=== PATIENT | female | born 1935 | race Caucasian/White ===

== ENCOUNTER 2017-12-25 22:23 | Emergency (ER) | payer MEDICAID, MEDICARE ==
[2017-12-25] MEDS ORDERED: Sodium Chloride 0.9% 10 ML Syringe FLUSH PRN (22:45)
[2017-12-25] MEDS ORDERED: Furosemide 40 MG/4 ML VIAL IVPUSH ONE (22:45)
[2017-12-26] MEDS ORDERED: Lisinopril 5 MG Tab PO ONE (00:11)
[2017-12-26 01:40] VITALS: BP 200/90
--- NOTE | 2017-12-27 15:23 | ER ---
DATE SEEN: 12/25/2017 HISTORY OF PRESENT ILLNESS: This 82-year-old woman who has two weeks on and off of elevated blood pressure and notes more recently her blood pressure medicine have been stopped. Thought to have elevated pressure today, 140/94, with a heart rate of 108. She had previous colon resection for colorectal cancer 2 years ago. Previous sacral fracture, fistula, osteomyelitis hip. (I diagnosed that previously and she was very grateful for that.) Type 2 diabetes, congestive heart failure, depression, atrial fibrillation, congestive heart failure, and GERD. Today, she came in because she had right naris epistaxis. Urine output has been slightly decreased. Several weeks ago, her blood pressure medicine was discontinued, amlodipine was discontinued (probably secondary to decreased EF). She denies shortness of breath, but has had persistent swelling in her ankles after the blood pressure medicine had been changed and her feet are swollen. They are tight, but not painful. She denies pain in her legs, proximal to the lower ankles. She denies shortness of breath or cough, chest pain or irregular heartbeat, or abdominal discomfort. REVIEW OF SYSTEMS: Negative, except as noted above. ALLERGIES: None. MEDICATIONS: 1. Hydroxyzine. 2. Voltaren. 3. Prozac. 4. Omeprazole. 5. Fentanyl patch. 6. Hydrocodone. PHYSICAL EXAMINATION: VITAL SIGNS: Blood pressure 190/92 and repeat of 182/86. Repeated 200/90. HEART: Irregular rhythm. Heart rate 64 to 72. Respirations 20. Oxygen saturation 98%. GENERAL: The patient is attended by 3 relatives, 2 women and a man (son-in-law and 2 daughters). The third daughter came later. They are here to support her. She is very pleasant. She has a very engaging smile and articulate. HEENT: TMs negative. Pharynx without abnormality. NECK: No bruits. LUNGS: Clear without rales, rhonchi, or wheezes. HEART: S1, S2. No murmur. ABDOMEN: Soft. No increased PMI. Abdomen without tenderness. No guarding. No bruits. Bowel sounds normal. EXTREMITIES: Lower extremities, 2+ pedal edema that extends to the lower half of her lower leg. Dorsalis pedis decreased. LABORATORY STUDIES: No evidence for anemia. Hemoglobin 11.5. RBC indices normal. White count normal at 4600 with normal differential, 70 PMNs, 20 lymphocytes, 7 monos, and 3 eos. Complete metabolic panel relatively normal, except for BUN 19, creatinine 0.9 with a GFR of 60 and BUN-creatinine ratio 21.1, slightly elevated suggesting mild dehydration. Troponins normal. BNP is normal, except for slight elevation at 754, not considered very abnormal for age, normal is less than 450. Urinalysis; few bacteria, moderate occult blood, 30 protein, specific gravity 1.010 and 5-10 rbc's. ASSESSMENT: 1. Congestive heart failure. 2. She has extensive swelling of lower extremities. 3. Amlodipine was stopped probably because she has less than optimal ejection fraction. 4. She probably has congestive heart failure and swelling of ankle secondary to decreased diuresis and no diuretic use. 5. Blood pressure is elevated. I am not sure why the medications were stopped recently, but perhaps need to be restarted. PLAN: Restart her lisinopril at 10 mg daily. In the past, she had been up to 20 mg. I do not know what her renal artery flow is, and I doubt that she has renal artery stenosis, but it is possible. I do not have data to suggest she had any vascular studies. This is not warranted today. She has good renal function. No suggestion of chronic kidney disease and no evidence for anemia or GI bleed. To alleviate the swelling in her ankles, she was given 40 mg Lasix IV, and she had 1250 mL of urine. I did not place her on diuretics, I think that is up to the discretion of her doctor. I did replenish the lisinopril. She should take blood pressures 2 to 3 times a day for the next week until she sees her doctor and bring that list of blood pressures to the doctor and leave possible use of diuretics to the discretion of her doctor. DIAGNOSES: 1. Hypertension. 2. Congestive heart failure with persistent pedal edema. 3. No evidence for atrial fibrillation, presently. 4. Right naris epistaxis (on examination, right crusted blood in the right naris, probably secondary to dehydration, also under hydration, also dry winter air). Plan, use bacitracin on a daily basis to naris. /[id number] JAISON/GUMEL
== END 2017-12-26 01:17 | disposition home or self-care (01) ==
LOC: FB.ED 22:23
DX: I11.0 Hypertensive heart disease with heart failure (principal); I50.9 Heart failure, unspecified; R04.0 Epistaxis; M25.471 Effusion, right ankle; M25.472 Effusion, left ankle; T50.2X5A Adverse effect of carbonic-anhydrase inhibitors, benzothiadiazides and other diuretics, initial encounter; E11.9 Type 2 diabetes mellitus without complications; F32.9 Major depressive disorder, single episode, unspecified; K21.9 Gastro-esophageal reflux disease without esophagitis
CPT/HCPCS: 36415; 80053; 81001; 83735; 83880; 84484; 85025; 96374; 99284; A9270; J1940; J7050

== ENCOUNTER 2018-07-20 14:52 | Emergency (ER) | payer MEDICARE ==
[2018-07-20] MEDS ORDERED: Sodium Chloride 0.9% 10 ML Syringe FLUSH PRN (15:35)
[2018-07-20] MEDS ORDERED: hydrALAZINE 20 MG/ML SDV IVPUSH ONE ×2 (15:46→16:53)
--- NOTE | 2018-07-20 15:54 | EDM.PDOC ---
ED HPI GENERAL MEDICAL PROBLEM - General Chief Complaint: General Stated Complaint: HBP AND EYE TROUBLE Time Seen by Provider: 07/20/18 15:30 Source of Information: Reports: Patient, Family, Old Records History Limitations: Reports: No Limitations - History of Present Illness INITIAL COMMENTS - FREE TEXT/NARRATIVE: Gabby comes to [facility] ED with appearance of a subconjunctival hemorrhade of the R eye today, significance unknown. There are no ocular sxs, headache or dizziness, no chest pain or SOB. Her BP 238/84, VR 58 on admission, repeat BP 218/82. She has been off Lisinopril for the past 7 mos. There is a remote hx of Type II DM, currently off all meds. - Related Data Allergies Allergy/AdvReac Type Severity Reaction Status Date / Time No Known Allergies Allergy Verified 07/20/18 15:00 Home Meds: Home Meds Omeprazole 20 mg PO ACBREAKFAST PRN #0 cap.cr 10/29/15 [Rx] fentaNYL [Fentanyl] 50 mcg TD Q72D 04/14/16 [History] FLUoxetine [PROzac] 20 mg PO DAILY 12/26/17 [History] Hydrocodone/Acetaminophen [Hydrocodon-Acetaminophn 10-325] 1 tab TID PRN [History] Lisinopril 10 mg PO DAILY #30 tablet 07/20/18 [Rx] Past Medical History HEENT History: Reports: Cataract Other HEENT History: NA Cardiovascular History: Reports: Afib, Heart Failure, Hypertension Respiratory History: Reports: Pneumonia, Recurrent Gastrointestinal History: Reports: Other (See Below) Other Gastrointestinal History: hx colorectal CA Genitourinary History: Reports: Renal Disease, Urinary Incontinence Other Genitourinary History: Tunneling fistulat to right buttocks since surgery in nov TRANSPORTATION SERVICES REPRESENTATIVE History: Reports: Other TRANSPORTATION SERVICES REPRESENTATIVE History: [id number] Musculoskeletal History: Reports: Arthritis, Fracture Other Musculoskeletal History: fx R ankle, R wrist fx Neurological History: Reports: Concussion, Migraines Psychiatric History: Reports: Anxiety, Dementia, Depression Endocrine/Metabolic History: Reports: Diabetes, Type II Other Endocrine/Metabolic History: hx DM, hasn't needed meds x past couple months as BS was too low. Hematologic History: Reports: Anemia, Blood Transfusion(s), Iron Deficiency, Transfusion Reaction Oncologic (Cancer) History: Reports: Colon, Other (See Below) Other Oncologic History: rectal Dermatologic History: Reports: Other (See Below) Other Dermatologic History: hx sore to buttocks, fistula R buttocks - Infectious Disease History Infectious Disease History: Reports: Chicken Pox, Hepatitis C, Measles, MRSA, Mumps, Pertussis (Whooping Cough) - Past Surgical History HEENT Surgical History: Reports: Adenoidectomy, Cataract Surgery, Tonsillectomy , Other (See Below) Other HEENT Surgeries/Procedures: R cataract surgery Cardiovascular Surgical History: Reports: None GI Surgical History: Reports: Appendectomy, Colon, Colonoscopy, Colostomy, EGD Female Surgical History: Reports: Section, Hysterectomy, Salpingo- Oophorectomy, Other (See Below) Other Female Surgeries/Procedures: hyst with L ovary removal, cs x 1 Musculoskeletal Surgical History: Reports: ORIF, Other (See Below) Other Musculoskeletal Surgeries/Procedures:: R ankle surgery Oncologic Surgical History: Reports: None, Other (See Below) Other Oncologic Surgeries/Procedures: colorectal CA, has had colostomy for same. Dermatological Surgical History: Reports: Other (See Below) Social & Family History - Family History Family Medical History: Noncontributory - Tobacco Use Smoking Status *Q: Never Smoker - Caffeine Use Caffeine Use: Reports: Coffee - Recreational Drug Use Recreational Drug Use: No ED ROS GENERAL - Review of Systems Review Of Systems: See Below Constitutional: Reports: Malaise, Weakness HEENT: Reports: Other (subconjunctival hemorrhage R eye) Respiratory: Reports: No Symptoms Cardiovascular: Reports: Blood Pressure Problem, Edema Endocrine: Reports: No Symptoms GI/Abdominal: Reports: No Symptoms, Other (colostomy) : Reports: No Symptoms Musculoskeletal: Reports: Leg Pain (chronic, takes Duragesic patch 50 mcg q 3 days and prn hydrocodone) Skin: Reports: No Symptoms Neurological: Reports: No Symptoms Psychiatric: Reports: No Symptoms Hematologic/Lymphatic: Reports: No Symptoms Immunologic: Reports: No Symptoms ED EXAM, GENERAL - Physical Exam Exam: See Below Exam Limited By: No Limitations General Appearance: Alert, WD/WN, No Apparent Distress, Thin Eye Exam: Right Eye: Other (subconjunctival hemorrhage), Bilateral Eye: EOMI, PERRL Ears: Normal External Exam Nose: Normal Inspection Throat/Mouth: Normal Inspection, Normal Lips Head: Normocephalic Neck: Normal Inspection, Supple Respiratory/Chest: No Respiratory Distress, Lungs Clear, Normal Breath Sounds, No Accessory Muscle Use, Chest Non-Tender Cardiovascular: Regular Rate, Rhythm, No Murmur GI/Abdominal: Normal Bowel Sounds, Soft, Non-Tender, No Organomegaly, No Distention, No Abnormal Bruit, No Mass, Other (colostomy L abdomen) (Female) Exam: Deferred Rectal (Female) Exam: Deferred Back Exam: Normal Inspection Extremities: Pedal Edema (chronic) Neurological: Alert, Oriented, CN II-XII Intact Psychiatric: Normal Affect, Normal Mood Skin Exam: Warm, Dry, Intact, Normal Color Lymphatic: No Adenopathy Course - Vital Signs Text/Narrative:: Following assessment at the [facility] ED, anIV was started in the LUE, and Hydralazine 10 mg x 2 was administered, with BP improved 163/77, VR 85. I also administered Hydrocodone 5/325 for chronic neuralgia in lower legs which was of some benefit. Scrrening labs were baseline, with BNP 1131. Last Recorded V/S: Last Vital Signs Temp 36.4 C 07/20/18 14:54 Pulse 94 07/20/18 17:15 Resp 17 07/20/18 16:15 BP 195/89 H 07/20/18 17:15 Pulse Ox 98 07/20/18 16:15 - Orders/Labs/Meds Orders: Active Orders 24 hr Category Date Time Status EKG Documentation Completion [RC] ASDIRECTED Care 07/20/18 15:48 Active UA W/MICROSCOPIC [URIN] Stat Lab 07/20/18 15:55 Ordered Sodium Chloride 0.9% [Saline Flush] Med 07/20/18 15:35 Active 10 ml FLUSH ASDIRECTED PRN Peripheral IV Insertion Adult [OM.PC] Routine Oth 07/20/18 15:35 Ordered EKG 12 Lead [EK] Routine Ther 07/20/18 15:47 Ordered Medication Orders Sodium Chloride (Saline Flush) 10 ml FLUSH ASDIRECTED PRN PRN Reason: Keep Vein Open Last Admin: 07/20/18 16:00 Dose: 10 ml Labs: Laboratory Tests 07/20/18 07/20/18 07/20/18 Range/Units 15:55 16:06 16:06 WBC 3.6 L (4.5-12.0) X10-3/uL RBC 4.19 (3.23-5.20) x10(6)uL Hgb 12.8 (11.5-15.5) g/dL Hct 37.1 (30.0-51.3) % MCV 88.4 (80-96) fL MCH 30.5 (27.7-33.6) pg MCHC 34.5 (32.2-35.4) g/dL RDW 12.6 (11.5-15.5) % Plt Count 198 (125-369) X10(3)uL MPV 7.8 (7.4-10.4) fL Neut % (Auto) 64.8 (46-82) % Lymph % (Auto) 25.5 (13-37) % Dickey % (Auto) 7.6 (4-12) % Eos % (Auto) 1 (1.0-5.0) % Baso % (Auto) 1 (0-2) % Neut # (Auto) 2.3 (1.6-8.3) # Lymph # (Auto) 0.9 (0.6-5.0) # Dickey # (Auto) 0.3 (0.0-1.3) # Eos # (Auto) 0.1 (0.0-0.8) # Baso # (Auto) 0.0 (0.0-0.2) # Sodium 138 (135-145) mmol/L Potassium 3.8 (3.5-5.3) mmol/L Chloride 103 (100-110) mmol/L Carbon Dioxide 29 (21-32) mmol/L BUN 14 (7-18) mg/dL Creatinine 0.9 (0.55-1.02) mg/dL Est Cr Clr Drug Dosing 34.02 mL/min Estimated GFR (MDRD) 60 (>60) BUN/Creatinine Ratio 15.6 (9-20) Glucose 94 (80-116) mg/dL Calcium 8.7 (8.6-10.2) mg/dL Troponin I (<0.017-0.056) ng/mL NT-Pro-B Natriuret Pep (<=450) pg/mL Urine Color Yellow (YELLOW) Urine Appearance Slightly cloudy (CLEAR) Urine pH 7.0 H (5.0-6.5) Ur Specific [place] 1.015 (1.010-1.025) Urine Protein 100 H (NEGATIVE) mg/dL Urine Glucose (UA) Normal (NEGATIVE) mg/dL Urine Ketones Negative (NEGATIVE) mg/dL Urine Occult Blood Negative (NEGATIVE) Urine Nitrite Negative (NEGATIVE) Urine Bilirubin Negative (NEGATIVE) Urine Urobilinogen Normal (NEGATIVE) mg/dL Ur Leukocyte Esterase Negative (NEGATIVE) Urine RBC 0-5 (0) Urine WBC 0-5 (0) Ur Squamous Epith Cells Few H (NS,R,O) Urine Bacteria Few H (NS) Coarse Granular Casts Few H (NS) 07/20/18 Range/Units 16:06 WBC (4.5-12.0) X10-3/uL RBC (3.23-5.20) x10(6)uL Hgb (11.5-15.5) g/dL Hct (30.0-51.3) % MCV (80-96) fL MCH (27.7-33.6) pg MCHC (32.2-35.4) g/dL RDW (11.5-15.5) % Plt Count (125-369) X10(3)uL MPV (7.4-10.4) fL Neut % (Auto) (46-82) % Lymph % (Auto) (13-37) % Dickey % (Auto) (4-12) % Eos % (Auto) (1.0-5.0) % Baso % (Auto) (0-2) % Neut # (Auto) (1.6-8.3) # Lymph # (Auto) (0.6-5.0) # Dickey # (Auto) (0.0-1.3) # Eos # (Auto) (0.0-0.8) # Baso # (Auto) (0.0-0.2) # Sodium (135-145) mmol/L Potassium (3.5-5.3) mmol/L Chloride (100-110) mmol/L Carbon Dioxide (21-32) mmol/L BUN (7-18) mg/dL Creatinine (0.55-1.02) mg/dL Est Cr Clr Drug Dosing mL/min Estimated GFR (MDRD) (>60) BUN/Creatinine Ratio (9-20) Glucose (80-116) mg/dL Calcium (8.6-10.2) mg/dL Troponin I < 0.017 L (<0.017-0.056) ng/mL NT-Pro-B Natriuret Pep 1131 H* (<=450) pg/mL Urine Color (YELLOW) Urine Appearance (CLEAR) Urine pH (5.0-6.5) Ur Specific [place] (1.010-1.025) Urine Protein (NEGATIVE) mg/dL Urine Glucose (UA) (NEGATIVE) mg/dL Urine Ketones (NEGATIVE) mg/dL Urine Occult Blood (NEGATIVE) Urine Nitrite (NEGATIVE) Urine Bilirubin (NEGATIVE) Urine Urobilinogen (NEGATIVE) mg/dL Ur Leukocyte Esterase (NEGATIVE) Urine RBC (0) Urine WBC (0) Ur Squamous Epith Cells (NS,R,O) Urine Bacteria (NS) Coarse Granular Casts (NS) Meds: Medications Generic Name Dose Route Start Last Admin Trade Name Freq PRN Reason Stop Dose Admin Sodium Chloride 10 ml 07/20/18 15:35 07/20/18 16:00 Saline Flush FLUSH 10 ml ASDIRECTED PRN Administration Keep Vein Open Discontinued Medications Generic Name Dose Route Start Last Admin Trade Name Freq PRN Reason Stop Dose Admin Hydrocodone Bitart/Acetaminophen 1 tab 07/20/18 16:59 07/20/18 17:07 [place] 325-5 Mg PO 07/20/18 17:00 1 tab ONETIME ONE Administration Hydralazine HCl 10 mg 07/20/18 15:46 07/20/18 16:12 Apresoline IVPUSH 07/20/18 15:47 10 mg ONETIME ONE Administration Hydralazine HCl 10 mg 07/20/18 16:53 07/20/18 17:06 Apresoline IVPUSH 07/20/18 16:54 10 mg ONETIME ONE Administration Departure - Departure Time of Disposition: 18:02 Disposition: Home, Self-Care 01 Condition: Good Clinical Impression: Hypertensive urgency - Discharge Information *PRESCRIPTION DRUG MONITORING PROGRAM REVIEWED*: No *COPY OF PRESCRIPTION DRUG MONITORING REPORT IN PATIENT PATTIE: No Instructions: Acetaminophen; Hydrocodone tablets or capsules, Hypertension, [id number], Hydralazine injection Referrals: Jagjit Brown MD [Primary Care Provider] - Forms: ED Department Discharge Additional Instructions: Activity as tolerated. Monitor BP at home, keep log & bring in with you to your next appt. Take Lisinopril 10mg tonight when you get home, then take 1 tablet daily starting in morning. Follow up with regular doctor this week at clinic for follow up with hypertension & pain management. - Problem List & Annotations (1) Peripheral neuralgia SNOMED Code(s): 12247317 Code(s): M79.2 - NEURALGIA AND NEURITIS, UNSPECIFIED Status: Acute Current Visit: Yes Annotation/Comment:: I suggested follow up with PCP and consideration of alternative therapies to pain management in view of chronic opioid use. (2) Hypertensive urgency SNOMED Code(s): 430963546 Code(s): I16.0 - HYPERTENSIVE URGENCY Status: Acute Current Visit: Yes Annotation/Comment:: I advised to resume Lisinopril 10mg qd and follow up with PCP. - Problem List Review Problem List Initiated/Reviewed/Updated: Yes - My Orders Last 24 Hours: My Active Orders 07/20/18 15:35 Sodium Chloride 0.9% [Saline Flush] 10 ml FLUSH ASDIRECTED PRN Peripheral IV Insertion Adult [OM.PC] Routine 07/20/18 15:47 EKG 12 Lead [EK] Routine 07/20/18 15:48 EKG Documentation Completion [RC] ASDIRECTED 07/20/18 15:55 UA W/MICROSCOPIC [URIN] Stat - Assessment/Plan Last 24 Hours: My Active Orders 07/20/18 15:35 Sodium Chloride 0.9% [Saline Flush] 10 ml FLUSH ASDIRECTED PRN Peripheral IV Insertion Adult [OM.PC] Routine 07/20/18 15:47 EKG 12 Lead [EK] Routine 07/20/18 15:48 EKG Documentation Completion [RC] ASDIRECTED 07/20/18 15:55 UA W/MICROSCOPIC [URIN] Stat Plan: Follow up with PCP.
[2018-07-20] MEDS ORDERED: Acetaminophen/HYDROcodone 325-5 MG Tab PO ONE (16:59)
[2018-07-20] MEDS ORDERED: Lisinopril 10 MG Tab PO ONE (18:05)
[2018-07-20 18:16] VITALS: BP 156/78
== END 2018-07-20 18:20 | disposition home or self-care (01) ==
LOC: FB.ED 14:52
DX: I16.0 Hypertensive urgency (principal); I11.0 Hypertensive heart disease with heart failure; I50.9 Heart failure, unspecified; E11.9 Type 2 diabetes mellitus without complications; Z79.899 Other long term (current) drug therapy
CPT/HCPCS: 36415; 80048; 81001; 83880; 84484; 85025; 93005; 96372; 96374; 99284; A9270; J0360; J7050

== ENCOUNTER 2019-09-01 08:14 | Day surgery (SDC) | payer MEDICARE ==
[2019-09-01] MEDS ORDERED: Midazolam 1 MG/ML 2 ML SDV IV ONE (08:15)
[2019-09-01] MEDS ORDERED: fentaNYL 100 MCG/2 ML SDV IV ONE (08:15)
[2019-09-01] MEDS ORDERED: Lactated Ringers 1,000 ML IV SCH (08:30)
[2019-09-01] MEDS ORDERED: Sodium Chloride 0.9% 10 ML Syringe FLUSH PRN (08:30)
[2019-09-01 11:17] VITALS: BP 127/63; PULSE 61
--- NOTE | 2019-09-01 12:57 | OR ---
DATE OF OPERATION: 09/01/2019 SURGEON: Arin Delcid MD PREOPERATIVE DIAGNOSIS: Visually significant cataract, left eye. POSTOPERATIVE DIAGNOSIS: Visually significant cataract, left eye. PROCEDURES PERFORMED: Phacoemulsification with intraocular lens placement, left eye. ASSISTANTS: None. ANESTHESIA: Local with sedation. COMPLICATIONS: None. BLOOD LOSS: None. IMPLANTS: Baldev AU00T0, 20.0 diopter lens implanted. CDE: 3.07. DESCRIPTION OF PROCEDURE: After risks and benefits were reviewed with the patient, consent was obtained in the preoperative area, and the operative eye was marked with a surgical pen. In the preoperative area, a pledget was used to dilate the pupil consisting of a mixture of phenylephrine 10%, cyclopentolate 2%, moxifloxacin 0.5%, and bupivacaine 0.75%. The patient was taken to the operating room, where a time-out was performed, and the patient was placed under monitored anesthesia care. Topical tetracaine was used for anesthesia. The operative eye was prepped and draped for ophthalmic surgery, and the microscope was brought into position and focussed. A paracentesis incision was made, followed by injection of preservative-free 1% lidocaine into the anterior chamber, followed by injection of Viscoat into the anterior chamber. A microkeratome blade was used to make a corneal limbal incision temporarily. A cystotome was used to make the beginning of the capsulorrhexis, which was carried around 360 degrees in a curvilinear fashion using Utrata forceps. A Ashby cannula with BSS was used to hydrodissect and hydrodelineate the nucleus. The nucleus was removed in a divide and conquer manner using phacoemulsification. Irrigation and aspiration were used to remove the remaining cortical material. Provisc was used to inflate the capsular bag, and a pre-loaded Baldev AU00T0, 20.0 diopter lens, serial number [id number] was injected into the capsular bag. A Sinskey hook was used to position and center the lens. Next, irrigation and aspiration was used to remove any remaining viscoelastic and cortical material from the anterior chamber. BSS on a cannula was used to inflate the anterior chamber and hydrate the wound. The wound was checked and found to be watertight. 1 mg of Moxifloxacin was injected into the anterior chamber. Drapes were removed and the eye was cleaned. A drop of brimonidine 0.15% and a drop of TobraDex was placed. The eye was shielded, and the patient was taken to the recovery room in stable condition. /[id number] SHIRLENE/JULIANNE CC: FROYLAN CHANDLER PA-C MTDD
== END 2019-09-01 11:53 | disposition home or self-care (01) ==
LOC: FB.SDS 08:14
PROVIDERS: ATTEND Ophthalmology
DX: E11.36 Type 2 diabetes mellitus with diabetic cataract (principal); I13.0 Hypertensive heart and chronic kidney disease with heart failure and stage 1 through stage 4 chronic kidney disease, or unspecified chronic kidney disease; N18.3 Chronic kidney disease, stage 3 (moderate); I50.32 Chronic diastolic (congestive) heart failure; K21.9 Gastro-esophageal reflux disease without esophagitis; G43.909 Migraine, unspecified, not intractable, without status migrainosus; F41.9 Anxiety disorder, unspecified; Z79.899 Other long term (current) drug therapy
CPT/HCPCS: 82962; J2250; J3010; V2632

== ENCOUNTER 2020-04-22 07:48 | Day surgery (SDC) | payer MEDICARE ==
[2020-04-22] MEDS ORDERED: Lidocaine 2% 5 ML SDV INJECT ONE (07:49)
[2020-04-22] MEDS ORDERED: Propofol 200 MG/20 ML SDV IV ONE (07:49)
[2020-04-22] MEDS ORDERED: Lactated Ringers 1,000 ML IV SCH (08:15)
[2020-04-22] MEDS ORDERED: Sodium Chloride 0.9% 10 ML Syringe FLUSH PRN (08:15)
--- NOTE | 2020-04-22 10:18 | PCM.OPNOTE ---
- General Post-Op/Procedure Note Date of Surgery/Procedure: 04/22/20 Operative Procedure(s): egd with biopsy Findings: gastroduodenitis Pre Op Diagnosis: hx of vomiting Post-Op Diagnosis: gastroduodenitis Anesthesia Technique: PJ Primary Surgeon: Meek Church Anesthesia Provider: Jagjit Mccray Pathology: stomach and duodenum Complications: None Condition: Good Free Text/Narrative:: see dictation
[2020-04-22 11:44] VITALS: BP 185/95; PULSE 59
--- NOTE | 2020-04-22 14:25 | OR ---
DATE OF OPERATION: 04/22/2020 SURGEON: Meek Church MD PROCEDURE PERFORMED: Upper endoscopy with cold forceps biopsy. PREOPERATIVE DIAGNOSIS: Intractable vomiting. POSTOPERATIVE DIAGNOSIS: Gastroduodenitis. INDICATIONS FOR PROCEDURE: This is an 84-year-old white female who has had a longstanding history of emesis, recently had an exacerbation and required IV therapy to hydrate herself in the clinic. She was offered and accepted an EGD as part of workup. DESCRIPTION OF OPERATION: After an excellent IV sedation was administered, the bite block was inserted. Flexible endoscope was passed without difficulty down the patient's esophagus into the stomach. Stomach was insufflated, scope passed through the pylorus to the second portion of the duodenum and slowly withdrawn. The following findings were noted: In the first and second portions of the duodenum, there was some duodenitis noted, and biopsies were taken of both these areas. Stomach demonstrated diffuse gastritis, and multiple biopsies were taken. The esophagus was essentially unremarkable. The stomach was then deflated and the scope was removed. The patient tolerated the procedure well. Results will be sent by letter. /[id number] /MODL
== END 2020-04-22 11:10 | disposition home or self-care (01) ==
LOC: FB.SDS 07:48
PROVIDERS: ATTEND Surgery
DX: K29.90 Gastroduodenitis, unspecified, without bleeding (principal); E11.9 Type 2 diabetes mellitus without complications; F32.9 Major depressive disorder, single episode, unspecified; I11.0 Hypertensive heart disease with heart failure; I50.9 Heart failure, unspecified; F41.9 Anxiety disorder, unspecified; G25.81 Restless legs syndrome; Z11.59 Encounter for screening for other viral diseases; Z79.899 Other long term (current) drug therapy
CPT/HCPCS: 00731; 43239; 88305; 88342; J2001; J2704; J7120; U0002

== ENCOUNTER 2021-09-30 04:09 | Observation (INO) | payer MEDICARE ==
--- NOTE | 2021-09-30 06:46 | EDM.PDOC ---
ED HPI GENERAL MEDICAL PROBLEM - General Chief Complaint: Abdominal Pain Stated Complaint: ABD PAIN Time Seen by Provider: 09/30/21 06:41 Source of Information: Reports: Patient History Limitations: Reports: No Limitations - History of Present Illness INITIAL COMMENTS - FREE TEXT/NARRATIVE: Ms Medley is an 86-year-old female complaining of abdominal pain,fullness, and vomiting since yesterday.No constipation. No systemic symptoms. Has a h/o Colon cancer,with colon resection 4 years ago.She has a colostomy in place Bilateral Upper Abdomen Pain Score (Numeric/FACES): 8 - Related Data Allergies Allergy/AdvReac Type Severity Reaction Status Date / Time No Known Allergies Allergy Verified 09/30/21 10:38 Home Meds: Home Meds fentaNYL [Fentanyl] 50 mcg TD Q72H 04/14/16 [History] lisinopriL [Prinivil] 10 mg PO BID 08/28/19 [History] Cholecalciferol (Vitamin D3) [Vitamin D3] 5,000 unit PO DAILY 04/21/20 [History] ondansetron HCL [Zofran] 4 mg PO Q6H PRN 04/21/20 [History] Hydrocodone/Acetaminophen [Hydrocodon-Acetaminophn 10-325] 1 tab PO BID PRN 09/30/21 [History] Meclizine [Antivert] 12.5 mg PO TID PRN 09/30/21 [History] Sertraline [Zoloft] 50 mg PO DAILY 09/30/21 [History] amLODIPine [Norvasc] 5 mg PO DAILY 09/30/21 [History] rOPINIRole [Requip] 1 mg PO BEDTIME PRN 09/30/21 [History] Past Medical History HEENT History: Reports: Allergic Rhinitis, Cataract, Impaired Vision Other HEENT History: NA Cardiovascular History: Reports: Afib, Heart Failure, Hypertension Respiratory History: Reports: None Gastrointestinal History: Reports: Colon Polyp, GERD, Other (See Below) Other Gastrointestinal History: RECTAL FISTULA, VOMITING Genitourinary History: Reports: Acute Renal Failure Other Genitourinary History: Tunneling fistulat to right buttocks since surgery in nov. CYSTOSCOPY WITH STENT MANAGING COGNITIVE ENGINEER History: Reports: Other MANAGING COGNITIVE ENGINEER History: [id number] Musculoskeletal History: Reports: Back Pain, Chronic, Fracture, Osteoporosis, Other (See Below) Other Musculoskeletal History: PELVIC FX WITH OSTEOMYLITIS Neurological History: Reports: Migraines, Neuropathy, Peripheral, Other (See Below) Other Neuro History: RLS. ALTERED MENTAL STATUS Psychiatric History: Reports: Anxiety, Depression Endocrine/Metabolic History: Reports: Diabetes, Type II, Vitamin D Deficiency Other Endocrine/Metabolic History: hx DM, hasn't needed meds x past couple months as BS was too low. Hematologic History: Reports: Anemia Immunologic History: Reports: None Oncologic (Cancer) History: Reports: Colon, Other (See Below) Other Oncologic History: RECTAL CANCER Dermatologic History: Reports: None, Other (See Below) Other Dermatologic History: hx sore to buttocks, fistula R buttocks - Infectious Disease History Infectious Disease History: Reports: Chicken Pox, Measles, Mumps - Past Surgical History Head Surgeries/Procedures: Reports: None HEENT Surgical History: Reports: Cataract Surgery, Eye Surgery, Tonsillectomy Other HEENT Surgeries/Procedures: R cataract surgery Cardiovascular Surgical History: Reports: None Respiratory Surgical History: Reports: None GI Surgical History: Reports: Appendectomy, Colon, Colonoscopy, Colostomy, EGD, Other (See Below) Other GI Surgeries/Procedures: OSTOMY, ABD PERINEAL RESECTION, PERIRECTAL ABSC ESS WITH I&D Female Surgical History: Reports: Section, Cystoscopy, Hysterectomy, Oophorectomy Other Female Surgeries/Procedures: hyst with L ovary removal, cs x 1 Endocrine Surgical History: Reports: None Neurological Surgical History: Reports: Other (See Below) Other Neurological Surgeries/Procedures: 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 PELVIS FX Oncologic Surgical History: Reports: None, Other (See Below) Other Oncologic Surgeries/Procedures: colorectal CA, has had colostomy for same. Dermatological Surgical History: Reports: None Social & Family History - Family History Family Medical History: No Pertinent Family History - Tobacco Use Tobacco Use Status *Q: Unknown Ever Used Tobacco - Caffeine Use Caffeine Use: Reports: Coffee ED ROS GENERAL - Review of Systems Review Of Systems: Comprehensive ROS is negative, except as noted in HPI. ED EXAM, GI/ABD - Physical Exam Exam: See Below Exam Limited By: No Limitations General Appearance: Alert, WD/WN Ears: Normal External Exam Nose: Normal Inspection Throat/Mouth: Normal Inspection Respiratory/Chest: No Respiratory Distress Cardiovascular: Normal Peripheral Pulses GI/Abdominal Exam: Normal Bowel Sounds, Soft, Distended. No: Guarding Extremities: Normal Inspection Psychiatric: Normal Affect Skin Exam: Warm Course - Vital Signs Last Recorded V/S: Last Vital Signs Temp 98.0 F 10/03/21 00:00 Pulse 60 10/03/21 00:00 Resp 14 10/03/21 00:00 BP 138/66 10/03/21 00:00 Pulse Ox 96 10/03/21 00:00 - Orders/Labs/Meds Orders: Medication Orders Hydrocodone Bitart/Acetaminophen (Acetaminophen/Hydrocodone 325-10 Mg Tab) 1 tab PO BID PRN PRN Reason: SEVERE PAIN Amlodipine Besylate (Amlodipine 5 Mg Tab) 5 mg PO DAILY [facility] Last Admin: 10/02/21 09:20 Dose: 5 mg Documented by: GRAHAM Enoxaparin Sodium (Enoxaparin 30 Mg/0.3 Ml Syringe) 30 mg SUBCUT DAILY [facility] Last Admin: 10/02/21 08:26 Dose: 30 mg Documented by: Admin: 10/01/21 08:19 Dose: 30 mg Documented by: Admin: 09/30/21 13:03 Dose: 30 mg Documented by: AMBROCIO Fentanyl (Fentanyl 50 Mcg/Hr Transdermal Patch) 50 mcg TRDERM Q72H [facility] Last Admin: 09/30/21 13:07 Dose: 50 mcg Documented by: AMBROCIO Lisinopril (Lisinopril 20 Mg Tab) 10 mg PO BID [facility] Last Admin: 10/02/21 20:50 Dose: 10 mg Documented by: Admin: 10/02/21 09:21 Dose: 10 mg Documented by: GRAHAM Miscellaneous Information (Fentanyl Patch) 1 ea TRDERM Q72H [facility] Ondansetron HCl (Ondansetron 4 Mg/2 Ml Sdv) 4 mg IVPUSH Q6H PRN PRN Reason: Nausea/Vomiting Last Admin: 09/30/21 13:07 Dose: 4 mg Documented by: AMBROCIO Sertraline HCl (Sertraline 50 Mg Tab) 50 mg PO DAILY [facility] Last Admin: 10/02/21 09:20 Dose: 50 mg Documented by: GRAHAM Labs: Laboratory Tests 09/30/21 09/30/21 09/30/21 Range/Units 04:30 04:45 04:45 WBC 10.7 H (3.0-10.3) x10-3/uL RBC 4.13 (3.60-5.20) x10(6)uL Hgb 11.9 (11.4-15.5) g/dL Hct 36.3 (34.2-48.2) % MCV 88.0 (76.7-100.5) fL MCH 28.8 (23.9-33.9) pg MCHC 32.7 (31.9-34.8) g/dL RDW 14.0 (12.3-16.5) % Plt Count 225 (151-488) x10(3)uL MPV 7.8 (7.1-12.4) fL Add Manual Diff Yes Neutrophils % (Manual) 89 H (46-82) % Band Neutrophils % 4 (0-6) % Lymphocytes % (Manual) 2 L (13-37) % Monocytes % (Manual) 5 (4-12) % Sodium 139 (135-145) mmol/L Potassium 4.4 (3.5-5.3) mmol/L Chloride 105 (100-110) mmol/L Carbon Dioxide 24 (21-32) mmol/L BUN 34 H D (7-18) mg/dL Creatinine 1.6 H (0.55-1.02) mg/dL Est Cr Clr Drug Dosing 20.49 mL/min Estimated GFR (MDRD) 30 L (>60) BUN/Creatinine Ratio 21.3 H (9-20) Glucose 280 H D (80-116) mg/dL Lactic Acid (0.4-2.0) mmol/L Calcium 8.4 L (8.6-10.2) mg/dL Total Bilirubin 0.7 (0.1-1.3) mg/dL AST 15 D (5-25) IU/L ALT 14 D (12-36) U/L Alkaline Phosphatase 71 (56-112) IU/L C-Reactive Protein (0.5-0.9) mg/dL Total Protein 6.9 (6.0-8.0) g/dL Albumin 3.5 (3.2-4.6) g/dL Globulin 3.4 g/dL Albumin/Globulin Ratio 1.0 Lipase (73-393) U/L Urine Color Yellow (YELLOW) Urine Appearance Clear (CLEAR) Urine pH 7.0 H (5.0-6.5) Ur Specific [place] 1.010 (1.010-1.025) Urine Protein 500 H (NEGATIVE) mg/dL Urine Glucose (UA) 50 H (NORMAL) mg/dL Urine Ketones 15 H (NEGATIVE) mg/dL Urine Occult Blood Trace (NEGATIVE) Urine Nitrite Negative (NEGATIVE) Urine Bilirubin Negative (NEGATIVE) Urine Urobilinogen Normal (NEGATIVE) mg/dL Ur Leukocyte Esterase Negative (NEGATIVE) Urine RBC 0-5 (0-5) Urine WBC 0-5 (0-5) Ur Squamous Epith Cells Few H (NS,R,O) Urine Bacteria Few H (NS) Fine Granular Casts Few H (NS) SARS-CoV-2 RNA (DIMPLE) (NEGATIVE) 09/30/21 09/30/21 09/30/21 Range/Units 04:45 04:45 06:45 WBC (3.0-10.3) x10-3/uL RBC (3.60-5.20) x10(6)uL Hgb (11.4-15.5) g/dL Hct (34.2-48.2) % MCV (76.7-100.5) fL MCH (23.9-33.9) pg MCHC (31.9-34.8) g/dL RDW (12.3-16.5) % Plt Count (151-488) x10(3)uL MPV (7.1-12.4) fL Add Manual Diff Neutrophils % (Manual) (46-82) % Band Neutrophils % (0-6) % Lymphocytes % (Manual) (13-37) % Monocytes % (Manual) (4-12) % Sodium (135-145) mmol/L Potassium (3.5-5.3) mmol/L Chloride (100-110) mmol/L Carbon Dioxide (21-32) mmol/L BUN (7-18) mg/dL Creatinine (0.55-1.02) mg/dL Est Cr Clr Drug Dosing mL/min Estimated GFR (MDRD) (>60) BUN/Creatinine Ratio (9-20) Glucose (80-116) mg/dL Lactic Acid 0.8 (0.4-2.0) mmol/L Calcium (8.6-10.2) mg/dL Total Bilirubin (0.1-1.3) mg/dL AST (5-25) IU/L ALT (12-36) U/L Alkaline Phosphatase (56-112) IU/L C-Reactive Protein < 0.2 L (0.5-0.9) mg/dL Total Protein (6.0-8.0) g/dL Albumin (3.2-4.6) g/dL Globulin g/dL Albumin/Globulin Ratio Lipase 222 (73-393) U/L Urine Color (YELLOW) Urine Appearance (CLEAR) Urine pH (5.0-6.5) Ur Specific [place] (1.010-1.025) Urine Protein (NEGATIVE) mg/dL Urine Glucose (UA) (NORMAL) mg/dL Urine Ketones (NEGATIVE) mg/dL Urine Occult Blood (NEGATIVE) Urine Nitrite (NEGATIVE) Urine Bilirubin (NEGATIVE) Urine Urobilinogen (NEGATIVE) mg/dL Ur Leukocyte Esterase (NEGATIVE) Urine RBC (0-5) Urine WBC (0-5) Ur Squamous Epith Cells (NS,R,O) Urine Bacteria (NS) Fine Granular Casts (NS) SARS-CoV-2 RNA (DIMPLE) Negative (NEGATIVE) Meds: Medications Generic Name Dose Route Start Last Admin Trade Name Freq PRN Reason Stop Dose Admin Hydrocodone Bitart/Acetaminophen 1 tab 10/01/21 17:28 Acetaminophen/Hydrocodone 325-10 Mg Tab PO BID PRN SEVERE PAIN Amlodipine Besylate 5 mg 10/02/21 09:00 10/02/21 09:20 Amlodipine 5 Mg Tab PO 5 mg DAILY JOANNE Administration Enoxaparin Sodium 30 mg 09/30/21 11:30 10/02/21 08:26 Enoxaparin 30 Mg/0.3 Ml Syringe SUBCUT 30 mg DAILY JOANNE Administration Fentanyl 50 mcg 09/30/21 11:45 09/30/21 13:07 Fentanyl 50 Mcg/Hr Transdermal Patch TRDERM 50 mcg Q72H JOANNE Administration Lisinopril 10 mg 10/02/21 09:00 10/02/21 20:50 Lisinopril 20 Mg Tab PO 10 mg BID JOANNE Administration Miscellaneous Information 1 ea 10/03/21 11:45 Fentanyl Patch TRDERM Q72H [facility] Ondansetron HCl 4 mg 09/30/21 09:17 09/30/21 13:07 Ondansetron 4 Mg/2 Ml Sdv IVPUSH 4 mg Q6H PRN Administration Nausea/Vomiting Sertraline HCl 50 mg 10/02/21 09:00 10/02/21 09:20 Sertraline 50 Mg Tab PO 50 mg DAILY JOANNE Administration Discontinued Medications Generic Name Dose Route Start Last Admin Trade Name Freq PRN Reason Stop Dose Admin Clonidine HCl 0.1 mg 09/30/21 18:15 09/30/21 18:37 Clonidine 0.1 Mg/Day Transdermal Patch TRDERM 10/02/21 08:59 0.1 mg Q7D JOANNE Administration Enalaprilat 0.625 mg 09/30/21 13:09 09/30/21 13:19 Enalaprilat 1.25 Mg/Ml Sdv IVPUSH 0.625 mg Q6H PRN Administration Hypertension Sodium Chloride 1,000 mls @ 100 mls/hr 09/30/21 06:45 10/01/21 01:37 Normal Saline IV 100 mls/hr ASDIRECTED JOANNE Administration Potassium Chloride/Dextrose/Sod Cl 1,000 mls @ 100 mls/hr 10/01/21 11:45 D5 1/4 Ns With 20 Meq Kcl IV ASDIRECTED JOANNE Dextrose/Sodium Chloride 1,000 mls @ 100 mls/hr 10/01/21 11:45 10/01/21 11:45 Dextrose 5%-1/4 Ns IV 100 mls/hr ASDIRECTED JOANNE Administration Departure - Departure Time of Disposition: 06:43 Disposition: Still A Patient 30 Clinical Impression: Abdominal pain, SBO (small bowel obstruction) - Discharge Information Sepsis Event Note (ED) - Evaluation Sepsis Screening Result: No Definite Risk - Problem List & Annotations (1) SBO (small bowel obstruction) SNOMED Code(s): 684890897 Code(s): K56.609 - UNSP INTESTNL OBST, UNSP TO PARTIAL VERSUS COMPLETE OBST Status: Acute Current Visit: Yes (2) Cholelithiases SNOMED Code(s): 552558728 Code(s): K80.20 - CALCULUS OF GALLBLADDER W/O CHOLECYSTITIS W/O OBSTRUCTION Status: Acute Current Visit: Yes Annotation/Comment:: asymptomatic Qualifiers: Cholelithiasis location: gallbladder (3) RUPERT (acute kidney injury) SNOMED Code(s): 93243829, 95793214 Code(s): N17.9 - ACUTE KIDNEY FAILURE, UNSPECIFIED Status: Resolved Current Visit: Yes Annotation/Comment:: improved (4) Chronic gastritis SNOMED Code(s): 5547380 Code(s): K29.50 - UNSPECIFIED CHRONIC GASTRITIS WITHOUT BLEEDING Status: Chronic Current Visit: Yes Qualifiers: Gastritis type: unspecified gastritis Gastritis bleeding: presence of bleeding unspecified Qualified Code(s): K29.50 - Unspecified chronic gastritis without bleeding - Problem List Review Problem List Initiated/Reviewed/Updated: Yes - Assessment/Plan Plan: CT scan demonstrated markedly dilated loops of central small bowel likely representing a developing small bowel obstruction. She also has stable cholelithiasis. I will place an NG tube, start IV fluid supplementation and admit her.
[2021-09-30] MEDS: Sodium Chloride 0.9% 1,000 ML IV SCH ×2 (06:48→15:56)
[2021-09-30] MEDS ORDERED: Ondansetron 4 MG/2 ML SDV IVPUSH PRN (09:17)
--- NOTE | 2021-09-30 11:04 | PCM.HP.2 ---
H&P History of Present Illness - General Date of Service: 09/30/21 Admit Problem/Dx: Admission Diagnosis/Problem Admission Diagnosis/Problem Small bowel obstruction Source of Information: Patient, Provider History Limitations: Reports: No Limitations - History of Present Illness Initial Comments - Free Text/Narative: Gabby presented to ER last night for worsening abdominal pain, nausea and vomiting which started yesterday morning. She stated she vomited up her medicat ions yesterday and tried a couple of different things to help with nausea and pain but kept throwing them up. Her abdomen was more distended and hard which she states is unusual for her. Denies any fever, chills, runny nose, sore throat, cough, shortness of breath, diarrhea, dysuria, frequency or hematuria. No rash or sores. She had chemo prior to her bowel resection for her Colon cancer in 2015, has been in remission since. States her colostomy has been having normal output. Hx of hysterectomy. In ER, CT abdomen/pelvis showed markedly dilated fluid-filled loops of central small bowel, representing developing obstruction. Stable Cholelithiasis, left adrenal gland adenoma, chronic gastritis. WBC was 10.7, CRP <0.2, Lactic acid 0.8. Cr 1.6, UA protein, glucose, ketones but no signs of infection. Had NG placed which resolved her nausea/vomiting and pain, NS started at 125 ml/hr in ER. She was due to change her Fentanyl patch yesterday, took old one off but didn't put new one on. Sees Madison Burt at [facility], her last labs were in 07/2021, Cr 1.3 at that time. She states she's had to go into the clinic before for IV fluids, states she drinks plenty of fluids. Bilateral Upper Abdomen Pain Score (Numeric/FACES): 8 - Related Data Allergies/Adverse Reactions: Allergies Allergy/AdvReac Type Severity Reaction Status Date / Time No Known Allergies Allergy Verified 09/30/21 10:38 Home Medications: Home Meds fentaNYL [Fentanyl] 50 mcg TD Q72D 04/14/16 [History] hydroCHLOROthiazide [Hydrochlorothiazide] 25 mg PO DAILY 07/17/19 [History] rOPINIRole [Requip] 1 mg PO BEDTIME 07/17/19 [History] hydrOXYzine HCL [hydrOXYzine] 12.5 mg PO DAILY PRN 08/28/19 [History] lisinopriL [Prinivil] 10 mg PO BID 08/28/19 [History] Cholecalciferol (Vitamin D3) [Vitamin D3] 5,000 unit PO DAILY 04/21/20 [History] ondansetron HCL [Zofran] 4 mg PO Q6H PRN 04/21/20 [History] Hydrocodone/Acetaminophen [Hydrocodon-Acetaminophn 10-325] 1 tab PO BID 09/30/21 [History] Meclizine [Antivert] 12.5 mg PO TID PRN 09/30/21 [History] Sertraline [Zoloft] 50 mg PO DAILY 09/30/21 [History] amLODIPine [Norvasc] 5 mg PO DAILY 09/30/21 [History] Past Medical History HEENT History: Reports: Allergic Rhinitis, Cataract, Impaired Vision Other HEENT History: NA Cardiovascular History: Reports: Afib, Heart Failure, Hypertension Respiratory History: Reports: None Gastrointestinal History: Reports: Colon Polyp, GERD, Other (See Below) Other Gastrointestinal History: RECTAL FISTULA, VOMITING Genitourinary History: Reports: Acute Renal Failure Other Genitourinary History: Tunneling fistulat to right buttocks since surgery in nov. 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 ALTERED MENTAL STATUS Psychiatric History: Reports: Anxiety, Depression Endocrine/Metabolic History: Reports: Diabetes, Type II, Vitamin D Deficiency Other Endocrine/Metabolic History: hx DM, hasn't needed meds x past couple months as BS was too low. Hematologic History: Reports: Anemia Immunologic History: Reports: None Oncologic (Cancer) History: Reports: Colon, Other (See Below) Other Oncologic History: RECTAL CANCER Dermatologic History: Reports: None, Other (See Below) Other Dermatologic History: hx sore to buttocks, fistula R buttocks - Infectious Disease History Infectious Disease History: Reports: Chicken Pox, Measles, Mumps - Past Surgical History Head Surgeries/Procedures: Reports: None HEENT Surgical History: Reports: Cataract Surgery, Eye Surgery, Tonsillectomy Other HEENT Surgeries/Procedures: R cataract surgery Cardiovascular Surgical History: Reports: None Respiratory Surgical History: Reports: None GI Surgical History: Reports: Appendectomy, Colon, Colonoscopy, Colostomy, EGD, Other (See Below) Other GI Surgeries/Procedures: OSTOMY, ABD PERINEAL RESECTION, PERIRECTAL ABSCESS WITH I&D Female Surgical History: Reports: Section, Cystoscopy, Hysterectomy, Oophorectomy Other Female Surgeries/Procedures: hyst with L ovary removal, cs x 1 Endocrine Surgical History: Reports: None Neurological Surgical History: Reports: Other (See Below) Other Neurological Surgeries/Procedures: 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 PELVIS FX Oncologic Surgical History: Reports: None, Other (See Below) Other Oncologic Surgeries/Procedures: colorectal CA, has had colostomy for same. Dermatological Surgical History: Reports: None Social & Family History - Family History Family Medical History: No Pertinent Family History - Tobacco Use Tobacco Use Status *Q: Never Tobacco User - Caffeine Use Caffeine Use: Reports: Coffee, Soda, Tea - Recreational Drug Use Recreational Drug Use: No H&P Review of Systems - Review of Systems: Review Of Systems: Comprehensive ROS is negative, except as noted in HPI. Exam - Exam Exam: See Below - Vital Signs Vital Signs: Last Vital Signs Temp 97.4 F 09/30/21 08:45 Pulse 65 09/30/21 08:45 Resp 18 09/30/21 08:45 BP 180/86 H 09/30/21 08:45 Pulse Ox 96 09/30/21 08:45 Weight: 127 lb 8 oz - Exam General: Alert, Oriented, Cooperative HEENT: PERRLA, Conjunctiva Clear, EOMI, Hearing Intact, Mucosa Moist & [place], Other (NG in right nare) Lungs: Clear to Auscultation, Normal Respiratory Effort, Crackles (L base). No: Decreased Breath Sounds, Wheezing Cardiovascular: Regular Rate, Irregular Rhythm GI/Abdominal Exam: Soft, Non-Tender, Distended (L>R), Abnormal Bowel Sounds (hypoactive) (Female) Exam: Deferred Rectal (Female) Exam: Deferred Extremities: No Pedal Edema, Normal Capillary Refill Peripheral Pulses: 2+: Radial (L), Radial (R) Skin: Warm, Dry, Intact Neurological: Cranial Nerves Intact, Normal Speech, Normal Tone - Patient Data Lab Results Last 24 hrs: Laboratory Results - last 24 hr 09/30/21 09/30/21 09/30/21 Range/Units 04:30 04:45 04:45 WBC 10.7 H (3.0-10.3) x10-3/uL RBC 4.13 (3.60-5.20) x10(6)uL Hgb 11.9 (11.4-15.5) g/dL Hct 36.3 (34.2-48.2) % MCV 88.0 (76.7-100.5) fL MCH 28.8 (23.9-33.9) pg MCHC 32.7 (31.9-34.8) g/dL RDW 14.0 (12.3-16.5) % Plt Count 225 (151-488) x10(3)uL MPV 7.8 (7.1-12.4) fL Add Manual Diff Yes Neutrophils % (Manual) 89 H (46-82) % Band Neutrophils % 4 (0-6) % Lymphocytes % (Manual) 2 L (13-37) % Monocytes % (Manual) 5 (4-12) % Sodium 139 (135-145) mmol/L Potassium 4.4 (3.5-5.3) mmol/L Chloride 105 (100-110) mmol/L Carbon Dioxide 24 (21-32) mmol/L BUN 34 H D (7-18) mg/dL Creatinine 1.6 H (0.55-1.02) mg/dL Est Cr Clr Drug Dosing 20.49 mL/min Estimated GFR (MDRD) 30 L (>60) BUN/Creatinine Ratio 21.3 H (9-20) Glucose 280 H D (80-116) mg/dL Lactic Acid (0.4-2.0) mmol/L Calcium 8.4 L (8.6-10.2) mg/dL Total Bilirubin 0.7 (0.1-1.3) mg/dL AST 15 D (5-25) IU/L ALT 14 D (12-36) U/L Alkaline Phosphatase 71 (56-112) IU/L C-Reactive Protein (0.5-0.9) mg/dL Total Protein 6.9 (6.0-8.0) g/dL Albumin 3.5 (3.2-4.6) g/dL Globulin 3.4 g/dL Albumin/Globulin Ratio 1.0 Lipase (73-393) U/L Urine Color Yellow (YELLOW) Urine Appearance Clear (CLEAR) Urine pH 7.0 H (5.0-6.5) Ur Specific [place] 1.010 (1.010-1.025) Urine Protein 500 H (NEGATIVE) mg/dL Urine Glucose (UA) 50 H (NORMAL) mg/dL Urine Ketones 15 H (NEGATIVE) mg/dL Urine Occult Blood Trace (NEGATIVE) Urine Nitrite Negative (NEGATIVE) Urine Bilirubin Negative (NEGATIVE) Urine Urobilinogen Normal (NEGATIVE) mg/dL Ur Leukocyte Esterase Negative (NEGATIVE) Urine RBC 0-5 (0-5) Urine WBC 0-5 (0-5) Ur Squamous Epith Cells Few H (NS,R,O) Urine Bacteria Few H (NS) Fine Granular Casts Few H (NS) SARS-CoV-2 RNA (DIMPLE) (NEGATIVE) 09/30/21 09/30/21 09/30/21 Range/Units 04:45 04:45 06:45 WBC (3.0-10.3) x10-3/uL RBC (3.60-5.20) x10(6)uL Hgb (11.4-15.5) g/dL Hct (34.2-48.2) % MCV (76.7-100.5) fL MCH (23.9-33.9) pg MCHC (31.9-34.8) g/dL RDW (12.3-16.5) % Plt Count (151-488) x10(3)uL MPV (7.1-12.4) fL Add Manual Diff Neutrophils % (Manual) (46-82) % Band Neutrophils % (0-6) % Lymphocytes % (Manual) (13-37) % Monocytes % (Manual) (4-12) % Sodium (135-145) mmol/L Potassium (3.5-5.3) mmol/L Chloride (100-110) mmol/L Carbon Dioxide (21-32) mmol/L BUN (7-18) mg/dL Creatinine (0.55-1.02) mg/dL Est Cr Clr Drug Dosing mL/min Estimated GFR (MDRD) (>60) BUN/Creatinine Ratio (9-20) Glucose (80-116) mg/dL Lactic Acid 0.8 (0.4-2.0) mmol/L Calcium (8.6-10.2) mg/dL Total Bilirubin (0.1-1.3) mg/dL AST (5-25) IU/L ALT (12-36) U/L Alkaline Phosphatase (56-112) IU/L C-Reactive Protein < 0.2 L (0.5-0.9) mg/dL Total Protein (6.0-8.0) g/dL Albumin (3.2-4.6) g/dL Globulin g/dL Albumin/Globulin Ratio Lipase 222 (73-393) U/L Urine Color (YELLOW) Urine Appearance (CLEAR) Urine pH (5.0-6.5) Ur Specific [place] (1.010-1.025) Urine Protein (NEGATIVE) mg/dL Urine Glucose (UA) (NORMAL) mg/dL Urine Ketones (NEGATIVE) mg/dL Urine Occult Blood (NEGATIVE) Urine Nitrite (NEGATIVE) Urine Bilirubin (NEGATIVE) Urine Urobilinogen (NEGATIVE) mg/dL Ur Leukocyte Esterase (NEGATIVE) Urine RBC (0-5) Urine WBC (0-5) Ur Squamous Epith Cells (NS,R,O) Urine Bacteria (NS) Fine Granular Casts (NS) SARS-CoV-2 RNA (DIMPLE) Negative (NEGATIVE) Result Diagrams: 09/30/21 04:45 09/30/21 04:45 Imaging Impressions Last 24 hrs: CT abdomen/pelvis: showed markedly dilated fluid-filled loops of central small bowel, representing developing obstruction. Stable Cholelithiasis, left adrenal gland adenoma, chronic gastritis. Sepsis Event Note - Evaluation Sepsis Screening Result: No Definite Risk - Focused Exam Vital Signs: Vital Signs Temp Pulse Resp BP Pulse Ox Pulse Ox 09/30/21 08:45 97.4 F 65 18 180/86 H 96 96 09/30/21 05:56 84 18 131/87 99 09/30/21 04:13 97.8 F 72 18 158/86 H 97 *Q Meaningful Use (ADM) - VTE *Q VTE Mechanical Contraindications *Q: At Risk for Falls - VTE Risk Assess *Q Each Risk Factor Represents 1 Point: None Total Score 1 Point Risk Factors: 0 Each Risk Factor Represents 2 Points: None Total Score 2 Point Risk Factors: 0 Each Risk Factor Represents 3 Points: Age 75 Years or Greater Total Score 3 Point Risk Factors: 3 Each Risk Factor Represents 5 Points: None Total Score 5 Point Risk Factors: 0 Venous Thromboembolism Risk Factor Score *Q: 3 - Problem List (1) SBO (small bowel obstruction) SNOMED Code(s): 497264637 ICD Code: K56.609 - UNSP INTESTNL OBST, UNSP TO PARTIAL VERSUS COMPLETE OBST Status: Acute Current Visit: Yes (2) Vomiting SNOMED Code(s): 726734433 ICD Code: R11.10 - VOMITING, UNSPECIFIED Status: Acute Current Visit: No Qualifiers: Vomiting type: unspecified Vomiting Intractability: unspecified Nausea presence: with nausea Qualified Code(s): R11.2 - Nausea with vomiting, unspe cified (3) RUPERT (acute kidney injury) SNOMED Code(s): 30332058, 36447301 ICD Code: N17.9 - ACUTE KIDNEY FAILURE, UNSPECIFIED Status: Acute Current Visit: Yes (4) History of colon resection SNOMED Code(s): 518329218 ICD Code: Z90.49 - ACQUIRED ABSENCE OF OTHER SPECIFIED PARTS OF DIGESTIVE TRACT Status: Chronic Current Visit: Yes Onset Date: ~2015 (5) Cholelithiases SNOMED Code(s): 983976202 ICD Code: K80.20 - CALCULUS OF GALLBLADDER W/O CHOLECYSTITIS W/O OBSTRUCTION Status: Acute Current Visit: Yes Problem Details: asymptomatic Qualifiers: Cholelithiasis location: gallbladder (6) History of rectal cancer SNOMED Code(s): 667706295 ICD Code: Z85.048 - PRSNL HX OF MALIG NEOPLM OF RECTUM, RECTOSIG JUNCT, AND ANUS Status: Chronic Current Visit: Yes Onset Date: ~2015 (7) Chronic gastritis SNOMED Code(s): 0773332 ICD Code: K29.50 - UNSPECIFIED CHRONIC GASTRITIS WITHOUT BLEEDING Status: Chronic Current Visit: Yes Qualifiers: Gastritis type: unspecified gastritis Gastritis bleeding: presence of bleeding unspecified Qualified Code(s): K29.50 - Unspecified chronic gastritis without bleeding (8) Afib SNOMED Code(s): 12325385 ICD Code: I48.91 - UNSPECIFIED ATRIAL FIBRILLATION Status: Chronic Priority: Medium Current Visit: No (9) CHF (congestive heart failure) SNOMED Code(s): 90398527 ICD Code: I50.9 - HEART FAILURE, UNSPECIFIED Status: Chronic Current Visit: No (10) Depression SNOMED Code(s): 38426143 ICD Code: F32.9 - MAJOR DEPRESSIVE DISORDER, SINGLE EPISODE, UNSPECIFIED Status: Chronic Priority: Medium Current Visit: No (11) Diabetes type 2, controlled SNOMED Code(s): 34841755, 636490085 ICD Code: E11.9 - TYPE 2 DIABETES MELLITUS WITHOUT COMPLICATIONS Status: Chronic Priority: Medium Current Visit: No Problem Details: Monitor sugars (12) HTN (hypertension) SNOMED Code(s): 29132976 ICD Code: I10 - ESSENTIAL (PRIMARY) HYPERTENSION Status: Chronic P riority: Medium Current Visit: No Problem Details: Continue meds Qualifiers: Hypertension type: essential hypertension Problem List Initiated/Reviewed/Updated: Yes Orders Last 24hrs: Active Orders 24 hr Category Date Time Status Patient Status [ADT] Routine ADT 09/30/21 09:44 Active Height and Weight [RC] 06 Care 09/30/21 06:46 Active Intake and Output [RC] 06,14,22 Care 09/30/21 06:47 Active NG [Gastrointestinal Tube Mgmt] [RC] QSHIFT Care 09/30/21 09:15 Active Oxygen Therapy [RC] PRN Care 09/30/21 06:46 Active Up With Assistance [RC] ASDIRECTED Care 09/30/21 09:16 Active Up to Chair [RC] ASDIRECTED Care 09/30/21 09:16 Active Vital Signs [RC] 00,04,08,12,16,20 Care 09/30/21 06:46 Active Nothing per Oral Now Diet [DIET] Diet 09/30/21 Breakfast Ordered Abdomen 1V Upright [CR] Stat Exams 09/30/21 07:34 Taken Abdomen Pelvis wo Cont [CT] Stat Exams 09/30/21 04:33 Taken CBC WITH AUTO DIFF [HEME] AM Lab 10/01/21 05:11 Ordered COMPREHENSIVE METABOLIC PN,CMP [CHEM] AM Lab 10/01/21 05:11 Ordered Ondansetron [Zofran] Med 09/30/21 09:17 Active 4 mg IVPUSH Q6H PRN Sodium Chloride 0.9% [Normal Saline] 1,000 ml Med 09/30/21 06:45 Active IV ASDIRECTED Antiembolic Hose [OM.PC] Per Unit Routine Oth 09/30/21 09:17 Ordered Resuscitation Status Routine Resus Stat 09/30/21 06:46 Ordered Medication Orders Sodium Chloride (Normal Saline) 1,000 mls @ 100 mls/hr IV ASDIRECTED JOANNE Last Infusion: 09/30/21 09:23 Dose: 100 mls/hr Documented by: Admin: 09/30/21 06:48 Dose: 125 mls/hr Documented by: MAHOGANY Ondansetron HCl (Ondansetron 4 Mg/2 Ml Sdv) 4 mg IVPUSH Q6H PRN PRN Reason: Nausea/Vomiting Assessment/Plan Comment:: 1. Admit for observation care for small bowel obstruction, RUPERT. 2. Small bowel obstruction: NG placed, NS at 100 ml/hr, adjust as needed. Spoke with Dr Cristobal, surgery, advised conservative measures and if not resolved in 48 hours would need transfer to [facility]. Fentanyl 50 mcg q72h. NPO. Adjust treatments as necessary. 3. DM: diet controlled. Monitor blood sugars and if not able to advance her diet may need to change to D51/2NS. 4. HTN: Hold Lisinopril & Amlodipine, if needed will start Enalaprilat IV if she will be NPO for more than 24 hours. 5. Diet: NPO. 6. Activity: up to chair & with assistance. 7. DVT prophylaxis: TEDs, Lovenox 30 mg SQ daily. 8. Discharge planning: anticipate 24-48 hours of bowel rest, advance diet as tolerated. If does not respond to conservative measures would need to transfer out. - Mortality Measure Prognosis:: Poor
--- NOTE | 2021-09-30 12:49 | CR ---
INDICATION: NG tube placement. ABDOMEN, ONE VIEW: Single view of the abdomen and lower chest, included the pelvis, and revealed a mildly dilated loop of small bowel with air-fluid levels. This could be on the basis of gastroenteritis or possibly an early obstructive process. However, no other significant dilatation of bowel loops was seen to strongly suggest a mechanically obstructive process. Nasogastric tube is noted with its tip approximately 3.0 cm from the gastroesophageal junction. It would need to be advanced at least 10.0 cm for better positioning. Report was called to Dr. Clemente at 1220 hours, 09/30/21. [facility]
[2021-09-30] MEDS: Enoxaparin 30 MG/0.3 ML Syringe SUBCUT SCH (13:03)
[2021-09-30] MEDS: fentaNYL 50 MCG/HR Transdermal Patch TRDERM SCH (13:07)
[2021-09-30] MEDS ORDERED: Enalaprilat 1.25 MG/ML SDV IVPUSH PRN (13:09)
[2021-09-30] MEDS ORDERED: cloNIDine 0.1 MG/Day Transdermal Patch TRDERM SCH (18:15)
[2021-10-01] MEDS: Sodium Chloride 0.9% 1,000 ML IV SCH (01:37)
[2021-10-01] MEDS: Enoxaparin 30 MG/0.3 ML Syringe SUBCUT SCH (08:19)
--- NOTE | 2021-10-01 10:46 | PCM.PN ---
- General Info Date of Service: 10/01/21 Subjective Update: Janie states her belly pain is improved. States she changes her colostomy every 2 days, she usually doesn't empty the bag, states there is usually more in it bu t has not eaten since . No fevers or chills. No vomiting. - Patient Data Vitals - Most Recent: Last Vital Signs Temp 98.6 F 10/01/21 07:52 Pulse 62 10/01/21 07:52 Resp 16 10/01/21 07:52 BP 157/66 H 10/01/21 07:52 Pulse Ox 93 L 10/01/21 07:52 Weight - Most Recent: 130 lb I&O - Last 24 Hours: Intake & Output 09/30/21 10/01/21 10/01/21 22:59 06:59 14:59 Intake Total 779 785 Output Total 625 200 Balance 154 585 Lab Results Last 24 Hours: Laboratory Results - last 24 hr 09/30/21 10/01/21 10/01/21 Range/Units 16:00 06:16 06:16 WBC 4.4 (3.0-10.3) x10-3/uL RBC 3.38 L (3.60-5.20) x10(6)uL Hgb 9.9 L (11.4-15.5) g/dL Hct 30.0 L (34.2-48.2) % MCV 88.9 (76.7-100.5) fL MCH 29.3 (23.9-33.9) pg MCHC 33.0 (31.9-34.8) g/dL RDW 13.8 (12.3-16.5) % Plt Count 165 (151-488) x10(3)uL MPV 7.8 (7.1-12.4) fL Neut % (Auto) 78.8 H (30.8-76.2) % Lymph % (Auto) 11.7 L (18.4-52.1) % [place] % (Auto) 8.2 (4.4-15.7) % Eos % (Auto) 0.9 (0.6-8.1) % Baso % (Auto) 0.4 (0.2-1.5) % Neut # (Auto) 3.5 (1.5-6.3) x10-3/uL Lymph # (Auto) 0.5 L (1.0-4.4) x10-3/uL [place] # (Auto) 0.4 (0.3-1.0) x10-3/uL Eos # (Auto) 0.0 (0.0-0.8) x10-3/uL Baso # (Auto) 0.0 (0.0-0.1) x10-3/uL Sodium 136 (135-145) mmol/L Potassium 3.8 (3.5-5.3) mmol/L Chloride 111 H D (100-110) mmol/L Carbon Dioxide 27 (21-32) mmol/L BUN 24 H D (7-18) mg/dL Creatinine 1.4 H (0.55-1.02) mg/dL Est Cr Clr Drug Dosing 23.42 mL/min Estimated GFR (MDRD) 36 L (>60) BUN/Creatinine Ratio 17.1 (9-20) Glucose 120 H D (80-116) mg/dL POC Glucose 113 (80-116) mg/dL Calcium 7.2 L (8.6-10.2) mg/dL Total Bilirubin 0.4 (0.1-1.3) mg/dL AST 15 (5-25) IU/L ALT 9 L D (12-36) U/L Alkaline Phosphatase 56 (56-112) IU/L Total Protein 5.3 L (6.0-8.0) g/dL Albumin 2.5 L (3.2-4.6) g/dL Globulin 2.8 g/dL Albumin/Globulin Ratio 0.9 Med Orders - Current: Current Medications Clonidine HCl (Clonidine 0.1 Mg/Day Transdermal Patch) 0.1 mg TRDERM Q7D [facility] Last Admin: 09/30/21 18:37 Dose: 0.1 mg Documented by: Enalaprilat (Enalaprilat 1.25 Mg/Ml Sdv) 0.625 mg IVPUSH Q6H PRN PRN Reason: Hypertension Last Admin: 09/30/21 13:19 Dose: 0.625 mg Documented by: Enoxaparin Sodium (Enoxaparin 30 Mg/0.3 Ml Syringe) 30 mg SUBCUT DAILY [facility] Last Admin: 10/01/21 08:19 Dose: 30 mg Documented by: Fentanyl (Fentanyl 50 Mcg/Hr Transdermal Patch) 50 mcg TRDERM Q72H [facility] Last Admin: 09/30/21 13:07 Dose: 50 mcg Documented by: Sodium Chloride (Normal Saline) 1,000 mls @ 100 mls/hr IV ASDIRECTED JOANNE Last Admin: 10/01/21 01:37 Dose: 100 mls/hr Documented by: Miscellaneous Information (Fentanyl Patch) 1 ea TRDERM Q72H [facility] Ondansetron HCl (Ondansetron 4 Mg/2 Ml Sdv) 4 mg IVPUSH Q6H PRN PRN Reason: Nausea/Vomiting Last Admin: 09/30/21 13:07 Dose: 4 mg Documented by: - Exam General: Alert, Oriented, Cooperative, No Acute Distress Lungs: Clear to Auscultation, Normal Respiratory Effort Cardiovascular: Regular Rate, Irregular Rhythm GI/Abdominal Exam: Soft, Non-Tender, No Distention, Abnormal Bowel Sounds (hypoactive BS x 4, hear mostly suction from NG.). No: Guarding (Female) Exam: Deferred Extremities: No Pedal Edema, Normal Capillary Refill - Patient Data Lab Results Last 24 hrs: Laboratory Results - last 24 hr 09/30/21 10/01/21 10/01/21 Range/Units 16:00 06:16 06:16 WBC 4.4 (3.0-10.3) x10-3/uL RBC 3.38 L (3.60-5.20) x10(6)uL Hgb 9.9 L (11.4-15.5) g/dL Hct 30.0 L (34.2-48.2) % MCV 88.9 (76.7-100.5) fL MCH 29.3 (23.9-33.9) pg MCHC 33.0 (31.9-34.8) g/dL RDW 13.8 (12.3-16.5) % Plt Count 165 (151-488) x10(3)uL MPV 7.8 (7.1-12.4) fL Neut % (Auto) 78.8 H (30.8-76.2) % Lymph % (Auto) 11.7 L (18.4-52.1) % [place] % (Auto) 8.2 (4.4-15.7) % Eos % (Auto) 0.9 (0.6-8.1) % Baso % (Auto) 0.4 (0.2-1.5) % Neut # (Auto) 3.5 (1.5-6.3) x10-3/uL Lymph # (Auto) 0.5 L (1.0-4.4) x10-3/uL [place] # (Auto) 0.4 (0.3-1.0) x10-3/uL Eos # (Auto) 0.0 (0.0-0.8) x10-3/uL Baso # (Auto) 0.0 (0.0-0.1) x10-3/uL Sodium 136 (135-145) mmol/L Potassium 3.8 (3.5-5.3) mmol/L Chloride 111 H D (100-110) mmol/L Carbon Dioxide 27 (21-32) mmol/L BUN 24 H D (7-18) mg/dL Creatinine 1.4 H (0.55-1.02) mg/dL Est Cr Clr Drug Dosing 23.42 mL/min Estimated GFR (MDRD) 36 L (>60) BUN/Creatinine Ratio 17.1 (9-20) Glucose 120 H D (80-116) mg/dL POC Glucose 113 (80-116) mg/dL Calcium 7.2 L (8.6-10.2) mg/dL Total Bilirubin 0.4 (0.1-1.3) mg/dL AST 15 (5-25) IU/L ALT 9 L D (12-36) U/L Alkaline Phosphatase 56 (56-112) IU/L Total Protein 5.3 L (6.0-8.0) g/dL Albumin 2.5 L (3.2-4.6) g/dL Globulin 2.8 g/dL Albumin/Globulin Ratio 0.9 Result Diagrams: 10/01/21 06:16 10/01/21 06:16 Sepsis Event Note - Evaluation Sepsis Screening Result: No Definite Risk - Focused Exam Vital Signs: Vital Signs Temp Pulse Resp BP Pulse Ox Pulse Ox 10/01/21 07:52 98.6 F 62 16 157/66 H 93 L 93 L 10/01/21 04:00 97.3 F 63 14 135/55 L 95 10/01/21 00:00 98.7 F 63 14 148/55 H 95 - Problem List & Annotations (1) SBO (small bowel obstruction) SNOMED Code(s): 605692770 Code(s): K56.609 - UNSP INTESTNL OBST, UNSP TO PARTIAL VERSUS COMPLETE OBST Status: Acute Current Visit: Yes (2) Vomiting SNOMED Code(s): 436353554 Code(s): R11.10 - VOMITING, UNSPECIFIED Status: Resolved Current Visit: No Qualifiers: Vomiting type: unspecified Vomiting Intractability: unspecified Nausea presence: with nausea Qualified Code(s): R11.2 - Nausea with vomiting, unspecified (3) RUPERT (acute kidney injury) SNOMED Code(s): 23495137, 29541614 Code(s): N17.9 - ACUTE KIDNEY FAILURE, UNSPECIFIED Status: Acute Current Visit: Yes Annotation/Comment:: improved (4) History of colon resection SNOMED Code(s): 193567663 Code(s): Z90.49 - ACQUIRED ABSENCE OF OTHER SPECIFIED PARTS OF DIGESTIVE TRACT Status: Chronic Current Visit: Yes Onset Date: (5) Cholelithiases SNOMED Code(s): 163218598 Code(s): K80.20 - CALCULUS OF GALLBLADDER W/O CHOLECYSTITIS W/O OBSTRUCTION Status: Acute Current Visit: Yes Qualifiers: Cholelithiasis location: gallbladder Annotation/Comment:: asymptomatic (6) History of rectal cancer SNOMED Code(s): 434408041 Code(s): Z85.048 - PRSNL HX OF MALIG NEOPLM OF RECTUM, RECTOSIG JUNCT, AND ANUS Status: Chronic Current Visit: Yes Onset Date: (7) Chronic gastritis SNOMED Code(s): 5208855 Code(s): K29.50 - UNSPECIFIED CHRONIC GASTRITIS WITHOUT BLEEDING Status: Chronic Current Visit: Yes Qualifiers: Gastritis type: unspecified gastritis Gastritis bleeding: presence of bleeding unspecified Qualified Code(s): K29.50 - Unspecified chronic gastritis without bleeding (8) Afib SNOMED Code(s): 12698433 Code(s): I48.91 - UNSPECIFIED ATRIAL FIBRILLATION Status: Chronic Priority: Medium Current Visit: No (9) CHF (congestive heart failure) SNOMED Code(s): 43400046 Code(s): I50.9 - HEART FAILURE, UNSPECIFIED Status: Chronic Current Visit: No (10) Depression SNOMED Code(s): 29568687 Code(s): F32.9 - MAJOR DEPRESSIVE DISORDER, SINGLE EPISODE, UNSPECIFIED Status: Chronic Priority: Medium Current Visit: No (11) Diabetes type 2, controlled SNOMED Code(s): 12039669, 664066417 Code(s): E11.9 - TYPE 2 DIABETES MELLITUS WITHOUT COMPLICATIONS Status: Chronic Priority: Medium Current Visit: No Annotation/Comment:: Monitor sugars (12) HTN (hypertension) SNOMED Code(s): 86551026 Code(s): I10 - ESSENTIAL (PRIMARY) HYPERTENSION Status: Chronic Priority: Medium Current Visit: No Qualifiers: Hypertension type: essential hypertension Annotation/Comment:: - Problem List Review Problem List Initiated/Reviewed/Updated: Yes - My Orders Last 24 Hours: My Active Orders 09/30/21 09:44 Patient Status [ADT] Routine 09/30/21 11:30 Enoxaparin [Lovenox] 30 mg SUBCUT DAILY 09/30/21 11:45 fentaNYL [Duragesic] 50 mcg TRDERM Q72H 09/30/21 13:09 Enalaprilat [Vasotec IV] 0.625 mg IVPUSH Q6H PRN 09/30/21 15:41 Blood Glucose Check, Bedside [RC] TIDAC 10/03/21 11:45 Remove Patch 1 ea TRDERM Q72H - Plan Plan:: 1. Small bowel obstruction: NG will clamp q2h, then on for 2h, may have ice chi ps and sips of water, continue NS at 100 ml/hr, adjust as needed. Fentanyl 50 mcg q72h. NPO. Adjust treatments as necessary. 2. DM: diet controlled. BS have been within normal limits, will continue to monitor and adjust as needed. 3. HTN: Enalaprilat 0.625 mg IV q6h as needed, adjust for kidney function, when used yesterday only lasted about 2 hours at controlling her blood pressure, so Clonidine 0.1 mg q7d was placed, once we advance diet will discontinue and restart her home medications. 4. RUPERT: Cr improved to 1.4. Recheck labs tomorrow. 5. Diet: ice chips and sips of water when NG clamped. 6. Discharge planning: anticipate 24-48 hours of bowel rest, advance diet as tolerated. If does not respond to conservative measures would need to transfer out.
[2021-10-01] MEDS ORDERED: Dextrose 5%-0.225% NaCl w/KCl 1,000 ML IV SCH (11:45)
[2021-10-01] MEDS ORDERED: Dextrose 5 %-0.2 % NaCl 1,000 ML IV SCH (11:45)
[2021-10-01] MEDS ORDERED: Acetaminophen/HYDROcodone 325-10 MG Tab PO PRN (17:28)
[2021-10-02] MEDS: Enoxaparin 30 MG/0.3 ML Syringe SUBCUT SCH (08:26)
[2021-10-02] MEDS: amLODIPine 5 MG Tab PO SCH (09:20)
[2021-10-02] MEDS: Sertraline 50 MG Tab PO SCH (09:20)
[2021-10-02] MEDS: Lisinopril 20 MG Tab PO SCH ×2 (09:21→20:50)
--- NOTE | 2021-10-02 17:07 | PCM.PN ---
- General Info Date of Service: 10/02/21 Subjective Update: No abdominal pain, no nausea & vomiting since NG pulled last night. NO distention, passing stool & gas. Tolerated clear liquids last night. Does not have anyone home to get her today. Functional Status: Reports: Pain Controlled, Tolerating Diet, Ambulating, Urinating - Patient Data Vitals - Most Recent: Last Vital Signs Temp 98.6 F 10/02/21 07:49 Pulse 66 10/02/21 07:49 Resp 15 10/02/21 07:49 BP 139/50 L 10/02/21 09:21 Pulse Ox 91 L 10/02/21 08:00 Weight - Most Recent: 132 lb 11.2 oz I&O - Last 24 Hours: Intake & Output 10/02/21 10/02/21 10/02/21 06:59 14:59 22:59 Intake Total 200 1360 Output Total 350 Balance -150 1360 Lab Results Last 24 Hours: Laboratory Results - last 24 hr 10/01/21 10/02/21 10/02/21 Range/Units 17:12 06:38 11:39 Sodium 140 (135-145) mmol/L Potassium 4.0 (3.5-5.3) mmol/L Chloride 108 (100-110) mmol/L Carbon Dioxide 28 (21-32) mmol/L BUN 21 H (7-18) mg/dL Creatinine 1.3 H (0.55-1.02) mg/dL Est Cr Clr Drug Dosing 25.22 mL/min Estimated GFR (MDRD) 39 L (>60) BUN/Creatinine Ratio 16.2 (9-20) Glucose 88 (80-116) mg/dL POC Glucose 99 154 H (80-116) mg/dL Calcium 7.5 L (8.6-10.2) mg/dL Med Orders - Current: Current Medications Hydrocodone Bitart/Acetaminophen (Acetaminophen/Hydrocodone 325-10 Mg Tab) 1 tab PO BID PRN PRN Reason: SEVERE PAIN Amlodipine Besylate (Amlodipine 5 Mg Tab) 5 mg PO DAILY [facility] Last Admin: 10/02/21 09:20 Dose: 5 mg Documented by: Enoxaparin Sodium (Enoxaparin 30 Mg/0.3 Ml Syringe) 30 mg SUBCUT DAILY [facility] Last Admin: 10/02/21 08:26 Dose: 30 mg Documented by: Fentanyl (Fentanyl 50 Mcg/Hr Transdermal Patch) 50 mcg TRDERM Q72H [facility] Last Admin: 09/30/21 13:07 Dose: 50 mcg Documented by: Lisinopril (Lisinopril 20 Mg Tab) 10 mg PO BID [facility] Last Admin: 10/02/21 09:21 Dose: 10 mg Documented by: Miscellaneous Information (Fentanyl Patch) 1 ea TRDERM Q72H [facility] Ondansetron HCl (Ondansetron 4 Mg/2 Ml Sdv) 4 mg IVPUSH Q6H PRN PRN Reason: Nausea/Vomiting Last Admin: 09/30/21 13:07 Dose: 4 mg Documented by: Sertraline HCl (Sertraline 50 Mg Tab) 50 mg PO DAILY [facility] Last Admin: 10/02/21 09:20 Dose: 50 mg Documented by: Discontinued Medications Clonidine HCl (Clonidine 0.1 Mg/Day Transdermal Patch) 0.1 mg TRDERM Q7D [facility] Stop: 10/02/21 08:59 Last Admin: 09/30/21 18:37 Dose: 0.1 mg Documented by: Enalaprilat (Enalaprilat 1.25 Mg/Ml Sdv) 0.625 mg IVPUSH Q6H PRN PRN Reason: Hypertension Last Admin: 09/30/21 13:19 Dose: 0.625 mg Documented by: Sodium Chloride (Normal Saline) 1,000 mls @ 100 mls/hr IV ASDIRECTED [facility] Last Admin: 10/01/21 01:37 Dose: 100 mls/hr Documented by: Potassium Chloride/Dextrose/Sod Cl (D5 1/4 Ns With 20 Meq Kcl) 1,000 mls @ 100 mls/hr IV ASDIRECTED [facility] Dextrose/Sodium Chloride (Dextrose 5%-1/4 Ns) 1,000 mls @ 100 mls/hr IV ASDIRECTED [facility] Last Admin: 10/01/21 11:45 Dose: 100 mls/hr Documented by: - Exam General: Alert, Oriented, Cooperative, No Acute Distress Lungs: Clear to Auscultation, Normal Respiratory Effort Cardiovascular: Regular Rate, Irregular Rhythm GI/Abdominal Exam: Normal Bowel Sounds, Soft, Non-Tender, No Distention, Other (colostomy) Extremities: No Pedal Edema Peripheral Pulses: 2+: Radial (L), Radial (R) - Patient Data Lab Results Last 24 hrs: Laboratory Results - last 24 hr 10/01/21 10/02/21 10/02/21 Range/Units 17:12 06:38 11:39 Sodium 140 (135-145) mmol/L Potassium 4.0 (3.5-5.3) mmol/L Chloride 108 (100-110) mmol/L Carbon Dioxide 28 (21-32) mmol/L BUN 21 H (7-18) mg/dL Creatinine 1.3 H (0.55-1.02) mg/dL Est Cr Clr Drug Dosing 25.22 mL/min Estimated GFR (MDRD) 39 L (>60) BUN/Creatinine Ratio 16.2 (9-20) Glucose 88 (80-116) mg/dL POC Glucose 99 154 H (80-116) mg/dL Calcium 7.5 L (8.6-10.2) mg/dL Result Diagrams: 10/01/21 06:16 10/02/21 06:38 Sepsis Event Note - Evaluation Sepsis Screening Result: No Definite Risk - Focused Exam Vital Signs: Vital Signs Temp Pulse Resp BP BP Pulse Ox Pulse Ox 10/02/21 09:21 139/50 L 10/02/21 09:20 139/50 L 10/02/21 08:00 91 L 10/02/21 07:49 98.6 F 66 15 139/50 L 91 L - Problem List & Annotations (1) SBO (small bowel obstruction) SNOMED Code(s): 680304091 Code(s): K56.609 - UNSP INTESTNL OBST, UNSP TO PARTIAL VERSUS COMPLETE OBST Status: Acute Current Visit: Yes (2) Vomiting SNOMED Code(s): 619845039 Code(s): R11.10 - VOMITING, UNSPECIFIED Status: Resolved Current Visit: No Qualifiers: Vomiting type: unspecified Vomiting Intractability: unspecified Nausea presence: with nausea Qualified Code(s): R11.2 - Nausea with vomiting, unspecified (3) RUPERT (acute kidney injury) SNOMED Code(s): 45119197, 26997486 Code(s): N17.9 - ACUTE KIDNEY FAILURE, UNSPECIFIED Status: Resolved Current Visit: Yes Annotation/Comment:: improved (4) History of colon resection SNOMED Code(s): 895687263 Code(s): Z90.49 - ACQUIRED ABSENCE OF OTHER SPECIFIED PARTS OF DIGESTIVE TRACT Status: Chronic Current Visit: Yes Onset Date: ~2015 (5) Cholelithiases SNOMED Code(s): 637058003 Code(s): K80.20 - CALCULUS OF GALLBLADDER W/O CHOLECYSTITIS W/O OBSTRUCTION Status: Acute Current Visit: Yes Qualifiers: Cholelithiasis location: gallbladder Annotation/Comment:: asymptomatic (6) History of rectal cancer SNOMED Code(s): 415448539 Code(s): Z85.048 - PRSNL HX OF MALIG NEOPLM OF RECTUM, RECTOSIG JUNCT, AND ANUS Status: Chronic Current Visit: Yes Onset Date: ~2015 (7) Chronic gastritis SNOMED Code(s): 0347664 Code(s): K29.50 - UNSPECIFIED CHRONIC GASTRITIS WITHOUT BLEEDING Status: Chronic Current Visit: Yes Qualifiers: Gastritis type: unspecified gastritis Gastritis bleeding: presence of bleeding unspecified Qualified Code(s): K29.50 - Unspecified chronic gastritis without bleeding (8) Afib SNOMED Code(s): 62302964 Code(s): I48.91 - UNSPECIFIED ATRIAL FIBRILLATION Status: Chronic Priority: Medium Current Visit: No (9) CHF (congestive heart failure) SNOMED Code(s): 91595607 Code(s): I50.9 - HEART FAILURE, UNSPECIFIED Status: Chronic Current Visit: No (10) Depression SNOMED Code(s): 07378464 Code(s): F32.9 - MAJOR DEPRESSIVE DISORDER, SINGLE EPISODE, UNSPECIFIED S tatus: Chronic Priority: Medium Current Visit: No (11) Diabetes type 2, controlled SNOMED Code(s): 38206389, 385472211 Code(s): E11.9 - TYPE 2 DIABETES MELLITUS WITHOUT COMPLICATIONS Status: Chronic Priority: Medium Current Visit: No Annotation/Comment:: Monitor sugars (12) HTN (hypertension) SNOMED Code(s): 95980405 Code(s): I10 - ESSENTIAL (PRIMARY) HYPERTENSION Status: Chronic Priority: Medium Current Visit: No Qualifiers: Hypertension type: essential hypertension Annotation/Comment:: - Problem List Review Problem List Initiated/Reviewed/Updated: Yes - My Orders Last 24 Hours: My Active Orders 10/01/21 17:28 Acetaminophen/HYDROcodone [[place] 325-10 MG] 1 tab PO BID PRN NG [Nasogastric Orogastric Tube Removal] [OM.PC] Routine 10/02/21 09:00 Sertraline [Zoloft] 50 mg PO DAILY amLODIPine [Norvasc] 5 mg PO DAILY lisinopriL [Prinivil] 10 mg PO BID 10/02/21 Dinner Regular Diet [DIET] 10/03/21 11:45 Remove Patch 1 ea TRDERM Q72H - Plan Plan:: 1. Small bowel obstruction: NG pulled last night, tolerated clear liquids will advance to soft then regular today, if tolerates then home tomorrow. 2. DM: diet controlled. BS have been within normal limits, will continue to monitor and adjust as needed. 3. HTN: controlled on home medications. 4. RUPERT: Cr improved to 1.3. Recheck labs tomorrow. 5. Diet: Soft then regular for dinner. 6. Discharge planning: discharge tomorrow.
[2021-10-03] MEDS ORDERED: Lisinopril 10 MG Tab PO SCH (09:00)
[2021-10-03] MEDS: Enoxaparin 30 MG/0.3 ML Syringe SUBCUT SCH (10:07)
[2021-10-03 10:08] VITALS: BP 143/57
[2021-10-03] MEDS: Sertraline 50 MG Tab PO SCH (10:08)
[2021-10-03] MEDS: amLODIPine 5 MG Tab PO SCH (10:08)
[2021-10-03] MEDS: fentaNYL 50 MCG/HR Transdermal Patch TRDERM SCH (11:33)
--- NOTE | 2021-10-03 11:36 | PCM.DCSUM1 ---
Discharge Summary - Hospital Course HPI Initial Comments: Gabby presented to ER last night for worsening abdominal pain, nausea and vomiting which started yesterday morning. She stated she vomited up her medications yesterday and tried a couple of different things to help with nausea and pain but kept throwing them up. Her abdomen was more distended and hard which she states is unusual for her. Denies any fever, chills, runny nose, sore throat, cough, shortness of breath, diarrhea, dysuria, frequency or hematuria. No rash or sores. She had chemo prior to her bowel resection for her Colon cancer in 2016, has been in remission since. States her colostomy has been having normal output. Hx of hysterectomy. In ER, CT abdomen/pelvis showed markedly dilated fluid-filled loops of central small bowel, representing developing obstruction. Stable Cholelithiasis, left adrenal gland adenoma, chronic gastritis. WBC was 10.7, CRP <0.2, Lactic acid 0.8. Cr 1.6, UA protein, glucose, ketones but no signs of infection. Had NG placed which resolved her nausea/vomiting and pain, NS started at 125 ml/hr in ER. She was due to change her Fentanyl patch yesterday, took old one off but didn't put new one on. Sees Madison Burt at [facility], her last labs were in 07/2021, Cr 1.3 at that time. She states she's had to go into the clinic before for IV fluids, states she drinks plenty of fluids. Diagnosis: Stroke: No - Discharge Data Discharge Date: 10/03/21 Discharge Disposition: Home, Self-Care 01 Condition: Stable - Referral to Home Health Primary Care Physician: Madison Burt, [employer] - Discharge Diagnosis/Problem(s) (1) SBO (small bowel obstruction) SNOMED Code(s): 972285032 ICD Code: K56.609 - UNSP INTESTNL OBST, UNSP TO PARTIAL VERSUS COMPLETE OBST Status: Resolved Current Visit: Yes (2) Vomiting SNOMED Code(s): 874463048 ICD Code: R11.10 - VOMITING, UNSPECIFIED Status: Resolved Current Visit: No Qualifiers: Vomiting type: unspecified Vomiting Intractability: unspecified Nausea presence: with nausea Qualified Code(s): R11.2 - Nausea with vomiting, unspecified (3) RUPERT (acute kidney injury) SNOMED Code(s): 85158035, 03892218 ICD Code: N17.9 - ACUTE KIDNEY FAILURE, UNSPECIFIED Status: Resolved Current Visit: Yes Problem Details: improved (4) History of colon resection SNOMED Code(s): 776204585 ICD Code: Z90.49 - ACQUIRED ABSENCE OF OTHER SPECIFIED PARTS OF DIGESTIVE TRACT Status: Chronic Current Visit: Yes Onset Date: ~2015 (5) Cholelithiases SNOMED Code(s): 648323097 ICD Code: K80.20 - CALCULUS OF GALLBLADDER W/O CHOLECYSTITIS W/O OBSTRUCTION Status: Acute Current Visit: Yes Problem Details: asymptomatic Qualifiers: Cholelithiasis location: gallbladder (6) History of rectal cancer SNOMED Code(s): 125750300 ICD Code: Z85.048 - PRSNL HX OF MALIG NEOPLM OF RECTUM, RECTOSIG JUNCT, AND ANUS Status: Chronic Current Visit: Yes Onset Date: ~2015 (7) Chronic gastritis SNOMED Code(s): 2683840 ICD Code: K29.50 - UNSPECIFIED CHRONIC GASTRITIS WITHOUT BLEEDING Status: Chronic Current Visit: Yes Qualifiers: Gastritis type: unspecified gastritis Gastritis bleeding: presence of bleeding unspecified Qualified Code(s): K29.50 - Unspecified chronic gastritis without bleeding (8) Afib SNOMED Code(s): 38325257 ICD Code: I48.91 - UNSPECIFIED ATRIAL FIBRILLATION Status: Chronic Priority: Medium Current Visit: No (9) CHF (congestive heart failure) SNOMED Code(s): 28624204 ICD Code: I50.9 - HEART FAILURE, UNSPECIFIED Status: Chronic Current Visit: No (10) Depression SNOMED Code(s): 32003878 ICD Code: F32.9 - MAJOR DEPRESSIVE DISORDER, SINGLE EPISODE, UNSPECIFIED Status: Chronic Priority: Medium Current Visit: No (11) Diabetes type 2, controlled SNOMED Code(s): 87074220, 978577365 ICD Code: E11.9 - TYPE 2 DIABETES MELLITUS WITHOUT COMPLICATIONS Status: Chronic Priority: Medium Current Visit: No Problem Details: Monitor sugars (12) HTN (hypertension) SNOMED Code(s): 87549620 ICD Code: I10 - ESSENTIAL (PRIMARY) HYPERTENSION Status: Chronic Priority: Medium Current Visit: No Problem Details: Qualifiers: Hypertension type: essential hypertension - Patient Summary/Data Hospital Course: Janie was admitted for developing small bowel obstruction found on CT. She had NG placed in ER, was initially in lower esophagus on follow up XR, advanced and having good output. NG clamped for 2 hours, on for 2 hours which she tolerated so clamped for 4 hours and had minimal output once unclamped so NG was pulled on Sunday night. Her blood pressures were elevated while she was NPO, Enalprilat 0.625(adjusted for kidney function) were started, this only lasted about 2 hours, so Clonidine 0.1 mg patch started which controlled her pressures until her home medications were restarted. She was well controlled on her home doses of Amlodipine and Lisinopril. Her diet was advanced to clears which she tolerated. Her diet was advanced from clears to soft to regular on Sunday which she tolerated without return of pain or vomiting. She actually had no emesis episodes during hospitalization. She tolerated regular diet this morning. Her labs corrected with IVF and these were discontinued with advancement of her diet. Pain was controlled with Fentanyl patch, Tylenol/Hydrocodone. WBC 4.4, Hgb 9.9, Cr went from 1.6 on admission to 1.3 on 10/02. Covid negative. Home today without services. - Patient Instructions Diet: Usual Diet as Tolerated Activity: As Tolerated Driving: Do Not Drive Showering/Bathing: May Shower Notify Provider of: Fever, Increased Pain, Nausea and/or Vomiting Other/Special Instructions: Follow up with Madison Burt in 1 week to recheck how you are doing. - Discharge Plan *PRESCRIPTION DRUG MONITORING PROGRAM REVIEWED*: Not Applicable *COPY OF PRESCRIPTION DRUG MONITORING REPORT IN PATIENT PATTIE: Not Applicable Home Medications: Home Meds fentaNYL [Fentanyl] 50 mcg TD Q72H 04/14/16 [History] lisinopriL [Prinivil] 10 mg PO BID 08/28/19 [History] Cholecalciferol (Vitamin D3) [Vitamin D3] 5,000 unit PO DAILY 04/21/20 [History] ondansetron HCL [Zofran] 4 mg PO Q6H PRN 04/21/20 [History] Hydrocodone/Acetaminophen [Hydrocodon-Acetaminophn 10-325] 1 tab PO BID PRN 09/30/21 [History] Meclizine [Antivert] 12.5 mg PO TID PRN 09/30/21 [History] Sertraline [Zoloft] 50 mg PO DAILY 09/30/21 [History] amLODIPine [Norvasc] 5 mg PO DAILY 09/30/21 [History] rOPINIRole [Requip] 1 mg PO BEDTIME PRN 09/30/21 [History] Oxygen Therapy Mode: Room Air Patient Handouts: Bowel Obstruction, [id number], Fall Prevention in Hospitals, Adult, Venous Thromboembolism Prevention Forms: ED Department Discharge Referrals: Madison Burt PA-C [Ordering Only Provider] - - Discharge Summary/Plan Comment DC Time >30 min.: No Total # of Minutes for Discharge Time: 10 min - General Info Date of Service: 10/03/21 Subjective Update: Janie tolerated advancement of her diet yesterday, no return of her abdominal pain, having good output in her colostomy. Ate breakfast fine. No fevers, chills. - Patient Data Vitals - Most Recent: Last Vital Signs Temp 98.0 F 10/03/21 00:00 Pulse 60 10/03/21 00:00 Resp 14 10/03/21 00:00 BP 143/57 H 10/03/21 10:08 Pulse Ox 96 10/03/21 00:00 Weight - Most Recent: 132 lb 12.8 oz I&O - Last 24 hours: Intake & Output 10/02/21 10/03/21 10/03/21 22:59 06:59 14:59 Intake Total 610 250 Output Total 350 Balance 610 -100 Lab Results - Last 24 hrs: Laboratory Results - last 24 hr 10/02/21 10/02/21 Range/Units 11:39 17:01 POC Glucose 154 H 94 (80-116) mg/dL Med Orders - Current: Current Medications Hydrocodone Bitart/Acetaminophen (Acetaminophen/Hydrocodone 325-10 Mg Tab) 1 tab PO BID PRN PRN Reason: SEVERE PAIN Amlodipine Besylate (Amlodipine 5 Mg Tab) 5 mg PO DAILY [facility] Last Admin: 10/03/21 10:08 Dose: 5 mg Documented by: Enoxaparin Sodium (Enoxaparin 30 Mg/0.3 Ml Syringe) 30 mg SUBCUT DAILY [facility] Last Admin: 10/03/21 10:07 Dose: 30 mg Documented by: Fentanyl (Fentanyl 50 Mcg/Hr Transdermal Patch) 50 mcg TRDERM Q72H [facility] Last Admin: 09/30/21 13:07 Dose: 50 mcg Documented by: Lisinopril (Lisinopril 10 Mg Tab) 10 mg PO BID [facility] Last Admin: 10/03/21 10:08 Dose: 10 mg Documented by: Miscellaneous Information (Fentanyl Patch) 1 ea TRDERM Q72H [facility] Ondansetron HCl (Ondansetron 4 Mg/2 Ml Sdv) 4 mg IVPUSH Q6H PRN PRN Reason: Nausea/Vomiting Last Admin: 09/30/21 13:07 Dose: 4 mg Documented by: Sertraline HCl (Sertraline 50 Mg Tab) 50 mg PO DAILY [facility] Last Admin: 10/03/21 10:08 Dose: 50 mg Documented by: Discontinued Medications Clonidine HCl (Clonidine 0.1 Mg/Day Transdermal Patch) 0.1 mg TRDERM Q7D [facility] Stop: 10/02/21 08:59 Last Admin: 09/30/21 18:37 Dose: 0.1 mg Documented by: Enalaprilat (Enalaprilat 1.25 Mg/Ml Sdv) 0.625 mg IVPUSH Q6H PRN PRN Reason: Hypertension Last Admin: 09/30/21 13:19 Dose: 0.625 mg Documented by: Sodium Chloride (Normal Saline) 1,000 mls @ 100 mls/hr IV ASDIRECTED [facility] Last Admin: 10/01/21 01:37 Dose: 100 mls/hr Documented by: Potassium Chloride/Dextrose/Sod Cl (D5 1/4 Ns With 20 Meq Kcl) 1,000 mls @ 100 mls/hr IV ASDIRECTED [facility] Dextrose/Sodium Chloride (Dextrose 5%-1/4 Ns) 1,000 mls @ 100 mls/hr IV ASDIRECTED [facility] Last Admin: 10/01/21 11:45 Dose: 100 mls/hr Documented by: Lisinopril (Lisinopril 20 Mg Tab) 10 mg PO BID [facility] Last Admin: 10/02/21 20:50 Dose: 10 mg Documented by: - Exam General: Reports: Alert, Oriented, Cooperative Lungs: Reports: Clear to Auscultation, Normal Respiratory Effort, Decreased Breath Sounds (bibasilar). Denies: Crackles, Wheezing Cardiovascular: Reports: Regular Rate, Irregular Rhythm GI/Abdominal Exam: Normal Bowel Sounds, Soft, Non-Tender, No Distention, Other (Colostomy in place) Extremities: No Pedal Edema *Q Meaningful Use (DIS) - VTE *Q VTE Mechanical Contraindications *Q: At Risk for Falls
[2021-10-03] MEDS ORDERED: FENTANYL PATCH TRDERM SCH (11:45)
[2021-10-03 14:51] VITALS: PULSE 51
== END 2021-10-03 14:25 | disposition home or self-care (01) ==
LOC: FB.ED 04:09 → INTOOBSV 06:46 → FB.MS 06:46
PROVIDERS: ADMIT Family Medicine; ATTEND Family Medicine
DX: K56.609 Unspecified intestinal obstruction, unspecified as to partial versus complete obstruction (principal); I11.0 Hypertensive heart disease with heart failure; I50.9 Heart failure, unspecified; I48.91 Unspecified atrial fibrillation; K21.9 Gastro-esophageal reflux disease without esophagitis; M81.0 Age-related osteoporosis without current pathological fracture; E11.42 Type 2 diabetes mellitus with diabetic polyneuropathy; E55.9 Vitamin D deficiency, unspecified; N17.9 Acute kidney failure, unspecified; K29.50 Unspecified chronic gastritis without bleeding; F32.9 Major depressive disorder, single episode, unspecified; Z79.899 Other long term (current) drug therapy; Z98.890 Other specified postprocedural states; Z90.49 Acquired absence of other specified parts of digestive tract; Z20.822 Contact with and (suspected) exposure to COVID-19
CPT/HCPCS: 36415; 74018; 74176; 80048; 80053; 81001; 82947; 83605; 83690; 85025; 86140; 96372; 96374; 96375; 99285; A9270; G0378; J1650; J2405; J7030; U0002

== ENCOUNTER 2023-02-12 17:23 | Emergency (ER) | payer MEDICARE, OTHER ==
[2023-02-12] MEDS ORDERED: Lidocaine 1% 20 ML MDV INFILT ONE (17:24)
[2023-02-12] MEDS ORDERED: Bacitracin Oint 1 GM U/D Packet TOP ONE (18:10)
[2023-02-12] MEDS ORDERED: Diphtheria,Pertussis(Acell),Tetanus Vaccine 0.5 ML Syringe IM ONE (18:13)
[2023-02-12] MEDS ORDERED: Amoxicillin/Clavulanate K 875-125 MG Tab PO ONE (18:13)
[2023-02-12] MEDS ORDERED: amLODIPine 5 MG Tab PO ONE (18:42)
[2023-02-12 18:43] VITALS: BP 218/111; PULSE 73
== END 2023-02-12 18:57 | disposition home or self-care (01) ==
LOC: FB.ED 17:23
DX: S61.411A Laceration without foreign body of right hand, initial encounter (principal); S61.451A Open bite of right hand, initial encounter; S51.851A Open bite of right forearm, initial encounter; I11.0 Hypertensive heart disease with heart failure; I50.9 Heart failure, unspecified; E11.9 Type 2 diabetes mellitus without complications; Z79.899 Other long term (current) drug therapy; Z90.49 Acquired absence of other specified parts of digestive tract; Z90.710 Acquired absence of both cervix and uterus; Z23 Encounter for immunization; W54.0XXA Bitten by dog, initial encounter
CPT/HCPCS: 12002; 90471; 90715; 99283; A9270

== ENCOUNTER 2023-03-11 18:31 | Emergency (ER) | payer MEDICARE ==
[2023-03-11 21:46] VITALS: BP 209/85; PULSE 67
== END 2023-03-11 19:25 | disposition home or self-care (01) ==
LOC: FB.ED 18:31
DX: I89.0 Lymphedema, not elsewhere classified (principal); L97.919 Non-pressure chronic ulcer of unspecified part of right lower leg with unspecified severity; I11.0 Hypertensive heart disease with heart failure; I50.9 Heart failure, unspecified; E11.9 Type 2 diabetes mellitus without complications; Z79.899 Other long term (current) drug therapy
CPT/HCPCS: 99283

== ENCOUNTER 2023-03-19 15:34 | Inpatient (IN) | payer MEDICARE ==
[2023-03-19] MEDS ORDERED: cefTRIAXone 2 GM Vial IVPUSH SCH (16:30)
[2023-03-19] MEDS ORDERED: Ondansetron 4 MG Tab.DIS PO PRN (17:21)
[2023-03-19] MEDS: Doxycycline 100 MG in Sodium Chloride 0.9% 100 ML IV SCH (17:45)
[2023-03-19] MEDS: Enoxaparin 30 MG/0.3 ML Syringe SUBCUT SCH (17:47)
[2023-03-19] MEDS: Sertraline 50 MG Tab PO SCH (21:50)
[2023-03-19] MEDS: Ketoconazole 2% Crm 30 GM Tube TOP SCH (21:50)
[2023-03-19] MEDS: traMADol 50 MG Tab PO SCH (21:51)
[2023-03-20] MEDS: Doxycycline 100 MG in Sodium Chloride 0.9% 100 ML IV SCH ×2 (05:03→16:56)
[2023-03-20] MEDS: Sodium Chloride 0.9% 10 ML Syringe FLUSH PRN ×2 (06:10→16:54)
[2023-03-20 06:37] LABS: BASOPHILS ABSOLUTE AUTO 0.1 x10-3/uL (0.0-0.1); BASOPHILS PERCENT AUTO 1.5 % (0.2-1.5); EOSINOPHILS ABSOLUTE AUTO 0.1 x10-3/uL (0.0-0.8); EOSINOPHILS PERCENT AUTO 2.7 % (0.6-8.1); HEMATOCRIT 30.3 % (34.2-48.2); HEMOGLOBIN 10.4 g/dL (11.4-15.5); LYMPHOCYTES ABSOLUTE AUTO 0.8 x10-3/uL (1.0-4.4); LYMPHOCYTES PERCENT AUTO 19.9 % (18.4-52.1); MEAN CORPUSCULAR HEMOGLOBIN 29.3 pg (23.9-33.9); MEAN CORPUSCULAR HGB CONC 34.2 g/dL (31.9-34.8); MEAN CORPUSCULAR VOLUME 85.7 fL (76.7-100.5); MEAN PLATELET VOLUME 7.9 fL (7.1-12.4); MONOCYTES ABSOLUTE AUTO 0.4 x10-3/uL (0.3-1.0); NEUTROPHILS ABSOLUTE AUTO 2.6 x10-3/uL (1.5-6.3); NEUTROPHILS PERCENT AUTO 66.9 % (30.8-76.2); PLATELET COUNT,PLT 228 x10(3)uL (151-488); RED BLOOD CELL COUNT 3.53 x10(6)uL (3.60-5.20); RED CELL DISTRIBUTION WIDTH 14.3 % (12.3-16.5); WHITE BLOOD CELL COUNT,WBC 3.9 x10-3/uL (3.0-10.3)
[2023-03-20 06:39] LABS: BLOOD UREA NITROGEN,BUN 42 mg/dL (7-18); BUN/CREATININE RATIO 22.1 (9-20); CALCIUM 8.6 mg/dL (8.6-10.2); CARBON DIOXIDE,CO2 27 mmol/L (21-32); CHLORIDE,CL 107 mmol/L (100-110); CREATININE 1.9 mg/dL (0.55-1.02); EST CRCL DRUG DOSING (CG) 16.93 mL/min; ESTIMATED GFR 25 mL/min (>60); GLUCOSE RANDOM 135 mg/dL (80-116); POTASSIUM,K 4.3 mmol/L (3.5-5.3); SODIUM,NA 142 mmol/L (135-145)
[2023-03-20] MEDS: Furosemide 20 MG Tab PO SCH (08:44)
[2023-03-20] MEDS: amLODIPine 5 MG Tab PO SCH (08:45)
[2023-03-20] MEDS: Ketoconazole 2% Crm 30 GM Tube TOP SCH ×2 (08:46→20:48)
[2023-03-20] MEDS: traMADol 50 MG Tab PO SCH ×2 (08:48→20:48)
[2023-03-20] MEDS ORDERED: cefTRIAXone 1 GM in Sodium Chloride 0.9% 50 ML IV SCH (10:30)
[2023-03-20 15:19] LABS: ALBUMIN 3.1 g/dL (3.2-4.6); BLOOD UREA NITROGEN,BUN 44 mg/dL (7-18); BUN/CREATININE RATIO 23.2 (9-20); CALCIUM 8.4 mg/dL (8.6-10.2); CARBON DIOXIDE,CO2 28 mmol/L (21-32); CHLORIDE,CL 103 mmol/L (100-110); CREATININE 1.9 mg/dL (0.55-1.02); EST CRCL DRUG DOSING (CG) 16.93 mL/min; ESTIMATED GFR 25 mL/min (>60); GLUCOSE RANDOM 201 mg/dL (80-116); SODIUM,NA 139 mmol/L (135-145)
[2023-03-20] MEDS: Enoxaparin 30 MG/0.3 ML Syringe SUBCUT SCH (16:57)
[2023-03-20] MEDS ORDERED: cefTRIAXone 1 GM Vial IVPUSH SCH (17:00)
[2023-03-20] MEDS: Sertraline 50 MG Tab PO SCH (20:48)
[2023-03-21] MEDS: Doxycycline 100 MG in Sodium Chloride 0.9% 100 ML IV SCH (05:03)
[2023-03-21] MEDS: Sodium Chloride 0.9% 10 ML Syringe FLUSH PRN ×2 (05:55→08:57)
[2023-03-21 06:30] LABS: BASOPHILS ABSOLUTE AUTO 0.1 x10-3/uL (0.0-0.1); BASOPHILS PERCENT AUTO 2.2 % (0.2-1.5); EOSINOPHILS ABSOLUTE AUTO 0.1 x10-3/uL (0.0-0.8); EOSINOPHILS PERCENT AUTO 2.5 % (0.6-8.1); HEMATOCRIT 34.9 % (34.2-48.2); HEMOGLOBIN 11.7 g/dL (11.4-15.5); LYMPHOCYTES ABSOLUTE AUTO 0.9 x10-3/uL (1.0-4.4); LYMPHOCYTES PERCENT AUTO 19.6 % (18.4-52.1); MEAN CORPUSCULAR HEMOGLOBIN 28.6 pg (23.9-33.9); MEAN CORPUSCULAR HGB CONC 33.4 g/dL (31.9-34.8); MEAN CORPUSCULAR VOLUME 85.6 fL (76.7-100.5); MEAN PLATELET VOLUME 7.9 fL (7.1-12.4); MONOCYTES ABSOLUTE AUTO 0.3 x10-3/uL (0.3-1.0); MONOCYTES PERCENT AUTO 7.7 % (4.4-15.7); PLATELET COUNT,PLT 257 x10(3)uL (151-488); RED BLOOD CELL COUNT 4.08 x10(6)uL (3.60-5.20); RED CELL DISTRIBUTION WIDTH 14.5 % (12.3-16.5); WHITE BLOOD CELL COUNT,WBC 4.4 x10-3/uL (3.0-10.3)
[2023-03-21 06:35] LABS: BLOOD UREA NITROGEN,BUN 41 mg/dL (7-18); BUN/CREATININE RATIO 22.8 (9-20); CALCIUM 8.9 mg/dL (8.6-10.2); CARBON DIOXIDE,CO2 26 mmol/L (21-32); CHLORIDE,CL 104 mmol/L (100-110); CREATININE 1.8 mg/dL (0.55-1.02); EST CRCL DRUG DOSING (CG) 17.87 mL/min; ESTIMATED GFR 27 mL/min (>60); GLUCOSE RANDOM 122 mg/dL (80-116); POTASSIUM,K 4.1 mmol/L (3.5-5.3); SODIUM,NA 140 mmol/L (135-145)
[2023-03-21] MEDS ORDERED: Sodium Chloride 0.9% 1,000 ML IV ONE (07:53)
[2023-03-21] MEDS: Ketoconazole 2% Crm 30 GM Tube TOP SCH ×2 (08:56→20:43)
[2023-03-21] MEDS: Furosemide 20 MG Tab PO SCH (08:56)
[2023-03-21] MEDS: Amoxicillin/Clavulanate K 500-125 MG Tab PO SCH ×2 (08:56→20:42)
[2023-03-21] MEDS: amLODIPine 5 MG Tab PO SCH (09:09)
[2023-03-21] MEDS: traMADol 50 MG Tab PO SCH ×2 (09:09→20:42)
[2023-03-21] MEDS: Acetaminophen/HYDROcodone 325-5 MG Tab PO PRN (15:29)
[2023-03-21] MEDS: Enoxaparin 30 MG/0.3 ML Syringe SUBCUT SCH (16:49)
[2023-03-21] MEDS: Sertraline 50 MG Tab PO SCH (20:42)
[2023-03-21] MEDS: Doxycycline 100 MG Tab PO SCH (20:42)
[2023-03-22] MEDS: Acetaminophen 325 MG Tab PO PRN (02:25)
[2023-03-22 06:33] LABS: BASOPHILS ABSOLUTE AUTO 0.1 x10-3/uL (0.0-0.1); BASOPHILS PERCENT AUTO 1.5 % (0.2-1.5); EOSINOPHILS ABSOLUTE AUTO 0.1 x10-3/uL (0.0-0.8); EOSINOPHILS PERCENT AUTO 3.1 % (0.6-8.1); HEMATOCRIT 31.1 % (34.2-48.2); HEMOGLOBIN 10.5 g/dL (11.4-15.5); LYMPHOCYTES ABSOLUTE AUTO 0.8 x10-3/uL (1.0-4.4); LYMPHOCYTES PERCENT AUTO 17.5 % (18.4-52.1); MEAN CORPUSCULAR HEMOGLOBIN 28.9 pg (23.9-33.9); MEAN CORPUSCULAR HGB CONC 33.8 g/dL (31.9-34.8); MEAN CORPUSCULAR VOLUME 85.5 fL (76.7-100.5); MEAN PLATELET VOLUME 7.7 fL (7.1-12.4); MONOCYTES ABSOLUTE AUTO 0.4 x10-3/uL (0.3-1.0); MONOCYTES PERCENT AUTO 8.6 % (4.4-15.7); NEUTROPHILS ABSOLUTE AUTO 3.1 x10-3/uL (1.5-6.3); NEUTROPHILS PERCENT AUTO 69.3 % (30.8-76.2); PLATELET COUNT,PLT 223 x10(3)uL (151-488); RED BLOOD CELL COUNT 3.63 x10(6)uL (3.60-5.20); WHITE BLOOD CELL COUNT,WBC 4.4 x10-3/uL (3.0-10.3)
[2023-03-22 06:37] LABS: BLOOD UREA NITROGEN,BUN 41 mg/dL (7-18); BUN/CREATININE RATIO 21.6 (9-20); CALCIUM 8.5 mg/dL (8.6-10.2); CARBON DIOXIDE,CO2 26 mmol/L (21-32); CHLORIDE,CL 105 mmol/L (100-110); CREATININE 1.9 mg/dL (0.55-1.02); EST CRCL DRUG DOSING (CG) 16.93 mL/min; ESTIMATED GFR 25 mL/min (>60); GLUCOSE RANDOM 133 mg/dL (80-116); POTASSIUM,K 4.8 mmol/L (3.5-5.3); SODIUM,NA 139 mmol/L (135-145)
[2023-03-22] MEDS: Amoxicillin/Clavulanate K 500-125 MG Tab PO SCH (08:21)
[2023-03-22] MEDS: Furosemide 20 MG Tab PO SCH (08:21)
[2023-03-22] MEDS: Ketoconazole 2% Crm 30 GM Tube TOP SCH ×2 (08:22→20:03)
[2023-03-22] MEDS: amLODIPine 5 MG Tab PO SCH (08:26)
[2023-03-22] MEDS: Doxycycline 100 MG Tab PO SCH (08:27)
[2023-03-22] MEDS: traMADol 50 MG Tab PO SCH ×2 (08:29→20:01)
[2023-03-22] MEDS: cefTRIAXone 1 GM Vial IVPUSH SCH (10:09)
[2023-03-22] MEDS: Sodium Chloride 0.9% 10 ML Syringe FLUSH PRN (10:10)
[2023-03-22] MEDS: Enoxaparin 30 MG/0.3 ML Syringe SUBCUT SCH (16:41)
[2023-03-22] MEDS: Sertraline 50 MG Tab PO SCH (20:01)
[2023-03-23] MEDS: Acetaminophen 325 MG Tab PO PRN (04:49)
[2023-03-23] MEDS: cefTRIAXone 1 GM Vial IVPUSH SCH (08:24)
[2023-03-23] MEDS: Sodium Chloride 0.9% 10 ML Syringe FLUSH PRN (08:25)
[2023-03-23] MEDS: Furosemide 20 MG Tab PO SCH (08:26)
[2023-03-23] MEDS: Ketoconazole 2% Crm 30 GM Tube TOP SCH ×2 (08:27→20:27)
[2023-03-23] MEDS: amLODIPine 5 MG Tab PO SCH (08:28)
[2023-03-23] MEDS: traMADol 50 MG Tab PO SCH ×2 (08:33→20:28)
[2023-03-23] MEDS: Acetaminophen/HYDROcodone 325-5 MG Tab PO PRN (11:11)
[2023-03-23] MEDS: Enoxaparin 30 MG/0.3 ML Syringe SUBCUT SCH (15:21)
[2023-03-23] MEDS: Sertraline 50 MG Tab PO SCH (20:29)
[2023-03-24] MEDS: Acetaminophen 325 MG Tab PO PRN (00:33)
[2023-03-24 06:36] LABS: HEMOGLOBIN 10.1 g/dL (11.4-15.5)
[2023-03-24 06:40] LABS: BLOOD UREA NITROGEN,BUN 37 mg/dL (7-18); BUN/CREATININE RATIO 23.1 (9-20); CALCIUM 8.6 mg/dL (8.6-10.2); CARBON DIOXIDE,CO2 28 mmol/L (21-32); CHLORIDE,CL 105 mmol/L (100-110); CREATININE 1.6 mg/dL (0.55-1.02); ESTIMATED GFR 31 mL/min (>60); GLUCOSE RANDOM 120 mg/dL (80-116); POTASSIUM,K 4.6 mmol/L (3.5-5.3); SODIUM,NA 140 mmol/L (135-145)
[2023-03-24 06:41] LABS: BASOPHILS PERCENT AUTO 1.1 % (0.2-1.5); EOSINOPHILS ABSOLUTE AUTO 0.1 x10-3/uL (0.0-0.8); EOSINOPHILS PERCENT AUTO 2.3 % (0.6-8.1); HEMATOCRIT 29.3 % (34.2-48.2); LYMPHOCYTES ABSOLUTE AUTO 0.8 x10-3/uL (1.0-4.4); LYMPHOCYTES PERCENT AUTO 20.1 % (18.4-52.1); MEAN CORPUSCULAR HEMOGLOBIN 29.2 pg (23.9-33.9); MEAN CORPUSCULAR HGB CONC 34.5 g/dL (31.9-34.8); MEAN CORPUSCULAR VOLUME 84.8 fL (76.7-100.5); MEAN PLATELET VOLUME 7.9 fL (7.1-12.4); MONOCYTES ABSOLUTE AUTO 0.4 x10-3/uL (0.3-1.0); MONOCYTES PERCENT AUTO 8.8 % (4.4-15.7); NEUTROPHILS ABSOLUTE AUTO 2.7 x10-3/uL (1.5-6.3); NEUTROPHILS PERCENT AUTO 67.7 % (30.8-76.2); PLATELET COUNT,PLT 199 x10(3)uL (151-488); RED BLOOD CELL COUNT 3.46 x10(6)uL (3.60-5.20); RED CELL DISTRIBUTION WIDTH 14.2 % (12.3-16.5)
[2023-03-24] MEDS ORDERED: ceFAZolin 2 GM Vial IVPUSH SCH (09:30)
[2023-03-24] MEDS: Sodium Chloride 0.9% 10 ML Syringe FLUSH PRN ×2 (09:35→20:42)
[2023-03-24] MEDS: Ketoconazole 2% Crm 30 GM Tube TOP SCH ×2 (09:35→20:39)
[2023-03-24] MEDS: Furosemide 20 MG Tab PO SCH (09:36)
[2023-03-24] MEDS: traMADol 50 MG Tab PO SCH ×2 (09:46→20:40)
[2023-03-24] MEDS ORDERED: VANCOmycin 1 GM/200 ML 1 GM in Premix Bag 1 BAG IV SCH (10:00)
[2023-03-24] MEDS: Acetaminophen/HYDROcodone 325-5 MG Tab PO PRN (11:12)
[2023-03-24] MEDS: Enoxaparin 30 MG/0.3 ML Syringe SUBCUT SCH (16:07)
[2023-03-24] MEDS: amLODIPine 5 MG Tab PO SCH (19:35)
[2023-03-24] MEDS: cefTRIAXone 1 GM Vial IVPUSH SCH (19:35)
[2023-03-24] MEDS: ceFAZolin 1 GM Vial IVPUSH SCH (20:39)
[2023-03-24] MEDS: Sertraline 100 MG Tab PO SCH (21:24)
[2023-03-24] MEDS ORDERED: Calcium Carbonate 500 MG Tab.Chew PO PRN (22:10)
[2023-03-25] MEDS: Acetaminophen 325 MG Tab PO PRN (02:59)
[2023-03-25] MEDS: Ketoconazole 2% Crm 30 GM Tube TOP SCH ×2 (08:25→20:32)
[2023-03-25] MEDS: Furosemide 20 MG Tab PO SCH (08:26)
[2023-03-25] MEDS: traMADol 50 MG Tab PO SCH ×2 (08:35→20:32)
[2023-03-25] MEDS: Sodium Chloride 0.9% 10 ML Syringe FLUSH PRN ×3 (08:36→20:38)
[2023-03-25] MEDS: ceFAZolin 1 GM Vial IVPUSH SCH ×2 (08:37→20:33)
[2023-03-25] MEDS: Acetaminophen/HYDROcodone 325-5 MG Tab PO PRN (13:37)
[2023-03-25] MEDS: Enoxaparin 30 MG/0.3 ML Syringe SUBCUT SCH (17:13)
[2023-03-25] MEDS: Sertraline 100 MG Tab PO SCH (20:33)
[2023-03-26 07:24] LABS: BASOPHILS ABSOLUTE AUTO 0.1 x10-3/uL (0.0-0.1); BASOPHILS PERCENT AUTO 1.2 % (0.2-1.5); EOSINOPHILS ABSOLUTE AUTO 0.1 x10-3/uL (0.0-0.8); EOSINOPHILS PERCENT AUTO 2.5 % (0.6-8.1); HEMATOCRIT 28.6 % (34.2-48.2); HEMOGLOBIN 9.8 g/dL (11.4-15.5); LYMPHOCYTES ABSOLUTE AUTO 0.9 x10-3/uL (1.0-4.4); LYMPHOCYTES PERCENT AUTO 16.8 % (18.4-52.1); MEAN CORPUSCULAR HEMOGLOBIN 29.2 pg (23.9-33.9); MEAN CORPUSCULAR HGB CONC 34.4 g/dL (31.9-34.8); MONOCYTES ABSOLUTE AUTO 0.5 x10-3/uL (0.3-1.0); MONOCYTES PERCENT AUTO 10.1 % (4.4-15.7); NEUTROPHILS ABSOLUTE AUTO 3.5 x10-3/uL (1.5-6.3); NEUTROPHILS PERCENT AUTO 69.4 % (30.8-76.2); PLATELET COUNT,PLT 191 x10(3)uL (151-488); RED BLOOD CELL COUNT 3.37 x10(6)uL (3.60-5.20); RED CELL DISTRIBUTION WIDTH 14.3 % (12.3-16.5); WHITE BLOOD CELL COUNT,WBC 5.1 x10-3/uL (3.0-10.3)
[2023-03-26 07:33] LABS: BLOOD UREA NITROGEN,BUN 37 mg/dL (7-18); BUN/CREATININE RATIO 21.8 (9-20); CALCIUM 8.6 mg/dL (8.6-10.2); CARBON DIOXIDE,CO2 28 mmol/L (21-32); CHLORIDE,CL 103 mmol/L (100-110); CREATININE 1.7 mg/dL (0.55-1.02); EST CRCL DRUG DOSING (CG) 18.92 mL/min; ESTIMATED GFR 29 mL/min (>60); GLUCOSE RANDOM 113 mg/dL (80-116); POTASSIUM,K 4.7 mmol/L (3.5-5.3); SODIUM,NA 139 mmol/L (135-145)
[2023-03-26] MEDS ORDERED: VANCOmycin 1 GM/200 ML 200 ML IV SCH (08:00)
[2023-03-26] MEDS: Furosemide 20 MG Tab PO SCH (08:06)
[2023-03-26] MEDS: traMADol 50 MG Tab PO SCH (08:07)
[2023-03-26] MEDS: Sodium Chloride 0.9% 10 ML Syringe FLUSH PRN (08:08)
[2023-03-26] MEDS: ceFAZolin 1 GM Vial IVPUSH SCH (08:09)
[2023-03-26] MEDS: Ketoconazole 2% Crm 30 GM Tube TOP SCH (08:10)
[2023-03-26] MEDS: Acetaminophen/HYDROcodone 325-5 MG Tab PO PRN (12:47)
[2023-03-26] MEDS: Enoxaparin 30 MG/0.3 ML Syringe SUBCUT SCH (16:09)
[2023-03-26 16:31] VITALS: BP 144/60; PULSE 62
== END 2023-03-26 17:30 | disposition home health service (06) | DRG 603 ==
LOC: FB.MS 15:34
PROVIDERS: ADMIT Student in an Organized Health Care Education/Training Program; ATTEND Family Medicine
DX: L03.115 Cellulitis of right lower limb (principal); I13.0 Hypertensive heart and chronic kidney disease with heart failure and stage 1 through stage 4 chronic kidney disease, or unspecified chronic kidney disease; N18.32 Chronic kidney disease, stage 3b; I48.0 Paroxysmal atrial fibrillation; F32.A Depression, unspecified; E11.22 Type 2 diabetes mellitus with diabetic chronic kidney disease; Z66 Do not resuscitate; H54.7 Unspecified visual loss; M81.0 Age-related osteoporosis without current pathological fracture; F41.9 Anxiety disorder, unspecified; E55.9 Vitamin D deficiency, unspecified; E11.40 Type 2 diabetes mellitus with diabetic neuropathy, unspecified; K21.9 Gastro-esophageal reflux disease without esophagitis; I50.9 Heart failure, unspecified; M54.9 Dorsalgia, unspecified; G89.29 Other chronic pain; Z51.5 Encounter for palliative care; Z85.048 Personal history of other malignant neoplasm of rectum, rectosigmoid junction, and anus; Z90.49 Acquired absence of other specified parts of digestive tract
CPT/HCPCS: 36415; 73700-RT; 80048; 80069; 80202; 84550; 85025; 86140; 97165-GO; 97530-GO; 97535-GO; 99222; 99232; 99239; A9270-GY; J0690; J0696; J1650; J3370; J3490; J7030